=== PATIENT | female | born 1935 | race Caucasian/White ===

== ENCOUNTER 2023-04-04 16:56 | Observation (INO) | payer OTHER, SELFPAY ==
[2023-04-04] VITALS (21 sets, daily range): BP systolic 154–207; BP diastolic 68–86; PULSE 55–86; RESP 13–27; TEMP 37.1; O2SAT 92–97; BMI 25.8
--- NOTE | 2023-04-04 17:22 | DI.CT.S_ITS ---
PROCEDURE: CT HEAD/BRAIN WO CON INDICATIONS: Confusion TECHNIQUE: Noncontrast 4.5 mm thick angled axial sections acquired from the foramen magnum to the vertex, with coronal and sagittal reformats. For radiation dose reduction, the following was used: automated exposure control, adjustment of mA and/or kV according to patient size. COMPARISON: None. FINDINGS: Image quality: Excellent. CSF spaces: Basal cisterns are patent. No extra-axial fluid collections. The ventricles are symmetric in size and shape. Brain: No intracranial bleeds or masses. There is cerebral volume loss for age, with resultant ventricular and sulcal prominence. There are periventricular and deep white matter chronic small vessel ischemic changes. There is intracranial internal carotid artery atherosclerosis. Skull and face: Calvarium and visualized facial bones appear intact, without suspicious lesions. Sinuses: Visualized sinuses and mastoids are clear. IMPRESSION: 1. No acute intracranial abnormalities. 2. Cerebral volume loss and chronic microvascular ischemic changes. Dictated by: Christie Donohue M.D. on 04/04/2023 at 18:49 Approved by: Christie Donohue M.D. on 04/04/2023 at 18:50
--- NOTE | 2023-04-04 17:22 | DI.CT.S_ITS ---
PROCEDURE: CT ANGIO HEAD AND NECK INDICATIONS: Confusion TECHNIQUE: After the administration of intravenous contrast, 1 mm thick sections acquired from the aortic arch through the [place] of [place]. 3-dimensional junqlsa-qxfkbzemq-pccqzwvrcn (MIP) and/or volume rendering reformats were acquired of the central intracranial vasculature and neck separately. For radiation dose reduction, the following was used: automated exposure control, adjustment of mA and/or kV according to patient size. COMPARISON: [facility], CT, CT HEAD/BRAIN WO CON, 04/04/2023, 18:17. FINDINGS: Image quality: Limited by bolus timing, with venous contamination. BRAIN: CSF spaces: Ventricles are normal in size and shape. Basal cisterns are patent. No extra-axial fluid collections. Brain: No significant abnormality of the brain can be seen. Skull and face: Calvarium and facial bones appear intact, without suspicious lesions. Orbits appear normal. Sinuses: Sinuses and mastoids are clear. HEAD CT ANGIOGRAPHY: Anterior circulation: Intracranial internal carotid arteries are normal in size and flow. The flow within the paired anterior cerebral arteries is normal and symmetric. The flow within the middle cerebral arteries is normal and symmetric. The anterior communicating artery is seen. No aneurysms are seen. Posterior circulation: Visualized portions of the vertebral arteries demonstrate normal caliber, and join to form a normal appearing basilar artery. There is a prominent left posterior communicating artery seen, with an accompanying diminutive left P1 segment. This is attributed to a type origin of the right posterior cerebral artery, which is considered to be a normal developmental variant of typically no clinical consequence. The flow within the posterior cerebral arteries is normal and symmetric. No aneurysms are seen. NECK CT ANGIOGRAPHY: Carotid system: The great vessels demonstrate a conventional anatomy as they arise from the aortic arch. The origins of the common carotid arteries appear patent. The common carotid arteries demonstrate normal caliber and courses. The bifurcation regions demonstrate atherosclerotic irregularity and calcification, with approximately 50% narrowing on the left side and approximately 20% narrowing on the right side. The more distal internal carotid arteries demonstrate normal course and caliber. Posterior circulation: The origins of the vertebral arteries both appear widely patent. The more superior extracranial portions of both vertebral arteries also demonstrate normal courses and calibers. The left vertebral artery is dominant to the right. Soft tissues: Visualized neck soft tissues demonstrate no suspicious abnormalities. Bones: No suspicious bony lesions. Visualized cervical spine appears normally aligned. IMPRESSION: No significant intracranial arterial abnormality is seen. Focal atherosclerotic irregularity is seen involving the carotid bifurcation regions, yet without a hemodynamically significant stenosis. No significant vertebral artery abnormality is seen. Any quantitative measurements of stenosis were performed using NASCET criteria. Dictated by: Arian Campoverde M.D. on 04/04/2023 at 18:07 Approved by: Arian Campoverde M.D. on 04/04/2023 at 18:08
[2023-04-04] MEDS: ONDANSETRON 4 MG/2 ML INJ IV (17:43)
[2023-04-04 17:56] LABS: Add Manual Diff / Slide Review NO; Basophils Absolute Auto 100 /uL (0-100); Basophils Percent Auto 0.8 % (0-2); Eosinophils Absolute Auto 100 /uL (0-450); Eosinophils Percent Auto 1.2 % (2-4); Hematocrit 37.1 % (36-46); Hemoglobin 12.6 g/dL (12.0-16.0); Lymphocytes Absolute Auto 2500 /uL (1100-4500); Lymphocytes Percent Auto 27.6 % (25-40); Mean Corpuscular HGB Conc 33.9 % (30-36); Mean Corpuscular Hemoglobin 29.4 PG (26-34); Mean Corpuscular Volume 86.9 fL (80-100); Monocytes Absolute Auto 600 /uL (0-900); Monocytes Percent Auto 6.1 % (3-14); Neutrophils Absolute Auto 5900 /uL (1500-7000); Neutrophils Percent Auto 64.3 % (50-75); Platelet Count 299 X10^3/uL (150-400); Red Blood Cell Count 4.26 X10^6/uL (4.0-5.2); Red Cell Distribution Width 13.8 % (11.6-14.8); White Blood Cell Count 9.1 X10^3/uL (4.5-11.0)
[2023-04-04 17:59] LABS: INR 1.1 (0.9-1.3); Prothrombin Time 12.5 SECONDS (10.1-12.7)
[2023-04-04 18:02] LABS: PTT Partial Thromboplastin Tim 33 SECONDS (26-36)
--- NOTE | 2023-04-04 18:02 | ED_ITS ---
HPI - Neuro Symptoms/Deficit General Chief Complaint: Neuro Symptoms/Deficit Stated Complaint: bp192/108 galileo of stroke since 22 Time Seen by Provider: 04/04/23 17:21 Source: patient, family, RN notes reviewed and old records reviewed Mode of arrival: Wheelchair Limitations: altered mental status History of Present Illness HPI Narrative: 88-year-old female with history of prior TIAs and some short term memory issues on aspirin 81 mg daily, lisinopril and atorvastatin. Patient presents today family states she was last seen normal around noon by her grand daughter in-law. Patient does sometimes have some memory issues or loses her train thought but they state she came to them at about 330 this afternoon telling him that she feels drunk and then had several episodes of emesis. Patient they states seems slow in her speech but no expressive aphasia. They did not appreciate any weakness one-sided. No reported fevers. Patient denies chest pain or shortness of breath, denies headache, denies vision changes. Does state she feels nauseated in his able to tell me she threw up several times. Denies any diarrhea or constipation, denies any urinary symptoms such as dysuria urgency or frequency. No new swelling in her extremities. Patient has not had any ingestions she denies any alcohol. Family states there should be any marijuana or THC or CBD with in the house or other possibilities. She is had prior hip surgery bilaterally, knee surgery. No known drug allergies. No tobacco, alcohol or illicit. She is about to be established with a new primary care doctor [facility]. Patient lives with her son and [id number]-crp. On Anticoagulants: No Related Data Home Medications Medication Instructions Recorded Confirmed Aspir-81 81 mg PO DAILY 04/04/23 04/04/23 Claritin 10 mg PO DAILY seasonal allergies 04/04/23 04/04/23 atorvastatin 40 mg tablet 40 mg PO SUSAN 04/04/23 04/04/23 lisinopril 10 mg tablet 10 mg PO DAILY 04/04/23 04/04/23 Allergies Allergy/AdvReac Type Severity Reaction Status Date / Time No Known Drug Allergies Allergy Verified 04/04/23 17:11 Review of Systems Review of Systems ROS Unobtainable: All systems reviewed & are unremarkable except as noted in HPI and below Hematologic/Lymphatic On Anticoagulants: No Patient History Medical History (Updated 04/05/23 @ 00:56 by Salvador Barr MD) Cognitive deficits TIA (transient ischemic attack) HLD (hyperlipidemia) HTN (hypertension) Social History household members: family Smoking Status: Former smoker alcohol intake: never Smoking Status: Former smoker Substance Use Type: does not use Exam Narrative Exam Narrative: GEN: well nourished, well appearing female, alert and oriented x 1, speech is slow but no obvious expressive aphasia, patient appears to be in mild distress. HEENT: Atraumatic, pupils are equal round reactive to light, extraocular movements are intact, nares are clear, TMs are clear with no fluid, there is no conjunctival pallor. Throat is clear without any exudates, erythema, tonsillar enlargement or uvular deviation, no facial droop. HEART: Regular rate and rhythm without murmur, clicks, rubs. Pulses are equal in upper and lower extremities LUNGS:Lungs clear to auscultation, no wheezes, rales, crackles, chest moves symmetrically ABD:bowel sounds normal, soft, non-tender, no guarding, rebound, rigidity, no masses noted, no hepatosplenomegaly :No CVA tenderness MSCL: Non-tender, no muscle atrophy, muscles strength 5/5 upper and lower extremities, full range of motion NEURO:CN 2-12 intact, sensation normal, finger nose finger test normal, heel smith test normal, no dysarthria. SKIN: No rash, erythema or other skin changes. Initial Vital Signs Initial Vital Signs: Vital Signs Temperature 98.8 F 04/04/23 17:11 Pulse Rate 55 L 04/04/23 17:11 Respiratory Rate 18 04/04/23 17:11 Blood Pressure 154/70 H 04/04/23 17:11 Pulse Oximetry 94 04/04/23 17:11 Oxygen Delivery Method Room Air 04/04/23 17:11 Course Orders Ordered: ED Orders 04/04/23 17:43 Complete Blood Count AUTO DIFF Stat Comprehensive Metabolic Panel Stat Ethanol (ETOH) Stat Lipase Stat PTT Partial Thromboplastin [place] Stat Prothrombin Time INR Stat Troponin & CK Cardiac Panel Stat 04/04/23 19:20 UA Complete [Urinalysis and Microscopic] Stat Urine Drug Screen, Rapid Stat Acetaminophen (Acetaminophen 325 Mg Tablet) 650 mg PO Q6H PRN PRN Reason: Fever/Mild Pain (1-3) Aspirin (Aspirin Ec 81 Mg Tablet) 81 mg PO DAILY [facility] Atorvastatin Calcium (Atorvastatin 20 Mg Tablet) 40 mg PO BEDTIME SHILPA Hydralazine HCl (Hydralazine 20 Mg/Ml Vial) 10 mg IV Q6HR PRN PRN Reason: For SBP>160 Lisinopril (Lisinopril 10 Mg Tablet) 10 mg PO DAILY [facility] Loratadine (Loratadine 10 Mg Tablet) 10 mg PO DAILY [facility] Naloxone HCl (Naloxone 0.4 Mg/Ml Vial) 0.2 mg IV Q2MIN PRN PRN Reason: Opiate Reversal Discontinued Medications Lisinopril (Lisinopril 20 Mg Tablet) 20 mg PO NOW ONE Stop: 04/04/23 22:28 Last Admin: 04/04/23 23:01 Dose: 20 mg Documented By: Ondansetron HCl (Ondansetron 4 Mg/2 Ml Inj) 4 mg IV NOW ONE Stop: 04/04/23 17:40 Last Admin: 04/04/23 17:43 Dose: 4 mg Documented By: DENYS Vital Signs Vital signs: Vital Signs - 8 hr 04/04/23 19:05 04/04/23 19:06 04/04/23 19:06 Pulse Rate 75 79 Respiratory Rate 16 16 Blood Pressure 207/86 H Pulse Oximetry 93 95 04/04/23 19:15 04/04/23 19:15 04/04/23 19:30 Pulse Rate 80 85 Respiratory Rate 15 27 H Blood Pressure 195/84 H Pulse Oximetry 96 96 04/04/23 19:31 04/04/23 19:31 04/04/23 19:45 Pulse Rate 83 77 Respiratory Rate 25 H 18 Blood Pressure 183/80 H Pulse Oximetry 97 97 04/04/23 19:45 04/04/23 20:00 04/04/23 20:01 Pulse Rate 78 Respiratory Rate 17 Blood Pressure 165/74 H 187/84 H Pulse Oximetry 97 04/04/23 20:01 Pulse Rate 78 Respiratory Rate 17 Blood Pressure Pulse Oximetry 97 MDM - Neuro Symptoms/Deficit Lab Data 04/04/23 17:43 04/04/23 17:43 Labs: Lab Results 04/04/23 04/04/23 Range/Units 17:43 19:20 WBC 9.1 (4.5-11.0) X10^3/uL RBC 4.26 (4.0-5.2) X10^6/uL Hgb 12.6 (12.0-16.0) g/dL Hct 37.1 (36-46) % MCV 86.9 (80-100) fL MCH 29.4 (26-34) PG MCHC 33.9 (30-36) % RDW 13.8 (11.6-14.8) % Plt Count 299 (150-400) X10^3/uL Neut % (Auto) 64.3 (50-75) % Lymph % (Auto) 27.6 (25-40) % Woods % (Auto) 6.1 (3-14) % Eos % (Auto) 1.2 L (2-4) % Baso % (Auto) 0.8 (0-2) % Neut # (Auto) 5900 (2456-0341) /uL Lymph # (Auto) 2500 (0389-6630) /uL Woods # (Auto) 600 (0-900) /uL Eos # (Auto) 100 (0-450) /uL Baso # (Auto) 100 (0-100) /uL PT 12.5 (10.1-12.7) SECONDS INR 1.1 (0.9-1.3) APTT 33 (26-36) SECONDS Sodium 134 L (137-145) mmol/L Potassium 4.2 (3.4-5.1) mmol/L Chloride 103 (98-107) mmol/L Carbon Dioxide 24 (22-32) mmol/L BUN 20 H (7-17) mg/dL Creatinine 0.71 (0.52-1.04) mg/dL Estimated GFR > 60 (>60) mL/min BUN/Creatinine Ratio 28.2 H (6-22) Glucose 134 H (80-110) mg/dL Calcium 9.1 (8.4-10.2) mg/dL Total Bilirubin 0.5 (0.2-1.3) mg/dL AST 28 (14-36) IU/L ALT 18 (<35) IU/L Alkaline Phosphatase 99 (38-126) U/L Total Creatine Kinase 57 (30-135) U/L Troponin I < 0.012 (0.01-0.034) ng/mL Total Protein 7.4 (6.3-8.2) g/dL Albumin 4.1 (3.5-5.0) g/dL Globulin 3.3 (1.7-4.1) g/dL Albumin/Globulin Ratio 1.2 (1.0-2.8) Lipase 74 (23-300) U/L Urine Color Yellow Urine Appearance Clear Urine pH 5.5 (4.5-8.0) Ur Specific [place] 1.015 (1.000-1.035) Urine Protein Negative (Negative) Urine Glucose (UA) Negative (Negative) g/dL Urine Ketones Negative (NEGATIVE) Urine Occult Blood 1+ H (Negative) Urine Nitrate Negative (Negative) Urine Bilirubin Negative (NEGATIVE) Urine Urobilinogen 0.2 (0.2) E.U./dL Ur Leukocyte Esterase Negative (NEGATIVE) Urine RBC 1-5/hpf (0-5/HPF) Urine WBC 0-1/hpf (0-5/HPF) Ur Squamous Epith Cells 0-1 /hpf (0-5/HPF) Urine Bacteria None seen (None) Ur Culture Indicated? Cult not indicated U Opiates 300ng/mL cut Negative (Negative) Ur Oxycodone Screen Negative (Negative) Urine Methadone Screen Negative (Negative) Ur Barbiturates Screen Negative (Negative) U Tricyclic Antidepress Negative (Negative) Ur Phencyclidine Scrn Negative (Negative) Ur Amphetamines Screen Negative (Negative) U Methamphetamines Scrn Negative (Negative) Ur MDMA Scrn (Ecstasy) Negative (Negative) U Benzodiazepines Scrn Negative (Negative) Urine Cocaine Screen Negative (Negative) U Marijuana (THC) Screen Positive H (Negative) Ethyl Alcohol < 10 ( - 10) mg/dL Imaging Data CT scan - head: Radiologist's Impression: Close Head/Neck CTA (Signed) Arian Campoverde - 04/04/[address] (Signed) Christie Donohue - 04/04/23 Launch?[address] [address] [address] Scan Report Signed Patient: Amy Patel MR#: [id number] : 1935 Acct:[id number] Age/Sex: 88 / F Date of Service: 04/04/23 Loc: ED Accession Number: [id number] Procedure: CT head/brain wo con Ordering Provider: Heath Garcia D.O. PROCEDURE: CT HEAD/BRAIN WO CON INDICATIONS: Confusion TECHNIQUE: Noncontrast 4.5 mm thick angled axial sections acquired from the foramen magnum to the vertex, with coronal and sagittal reformats. For radiation dose reduction, the following was used: automated exposure control, adjustment of mA and/or kV according to patient size. COMPARISON: None. FINDINGS: Image quality: Excellent. CSF spaces: Basal cisterns are patent. No extra-axial fluid collections. The ventricles are symmetric in size and shape. Brain: No intracranial bleeds or masses. There is cerebral volume loss for age, with resultant ventricular and sulcal prominence. There are periventricular and deep white matter chronic small vessel ischemic changes. There is intracranial internal carotid artery atherosclerosis. Skull and face: Calvarium and visualized facial bones appear intact, without suspicious lesions. Sinuses: Visualized sinuses and mastoids are clear. IMPRESSION: 1. No acute intracranial abnormalities. 2. Cerebral volume loss and chronic microvascular ischemic changes. Dictated by: Christie Donohue M.D. on 04/04/2023 at 18:49 Approved by: Christie Donohue M.D. on 04/04/2023 at 18:50 CTA - brain/neck: Radiologist's Impression: Amy Patel??88??F??1935 ? Allergy/Adv: No Known Drug Allergies (More??) Close Head/Neck CTA (Signed) NiraliArian - 04/04/[address] (Signed) Christie Donohue - 04/04/23 Launch?[place] [address] CT Scan Report Signed Patient: Amy Patel MR#: [id number] : 1935 Acct:[id number] Age/Sex: 88 / F Date of Service: 04/04/23 Loc: ED Accession Number: [id number] Procedure: CT angio head and neck Ordering Provider: Heath Garcia D.O. PROCEDURE: CT ANGIO HEAD AND NECK INDICATIONS: Confusion TECHNIQUE: After the administration of intravenous contrast, 1 mm thick sections acquired from the aortic arch through the [place] of [place]. 3-dimensional xdkkcyy-xjusyunvj-quokfxggnr (MIP) and/or volume rendering reformats were acquired of the central intracranial vasculature and neck separately. For radiation dose reduction, the following was used: automated exposure control, adjustment of mA and/or kV according to patient size. COMPARISON: [facility], CT, CT HEAD/BRAIN WO CON, 04/04/2023, 18:17. FINDINGS: Image quality: Limited by bolus timing, with venous contamination. BRAIN: CSF spaces: Ventricles are normal in size and shape. Basal cisterns are patent. No extra-axial fluid collections. Brain: No significant abnormality of the brain can be seen. Skull and face: Calvarium and facial bones appear intact, without suspicious lesions. Orbits appear normal. Sinuses: Sinuses and mastoids are clear. HEAD CT ANGIOGRAPHY: Anterior circulation: Intracranial internal carotid arteries are normal in size and flow. The flow within the paired anterior cerebral arteries is normal and symmetric. The flow within the middle cerebral arteries is normal and symmetric. The anterior communicating artery is seen. No aneurysms are seen. Posterior circulation: Visualized portions of the vertebral arteries demonstrate normal caliber, and join to form a normal appearing basilar artery. There is a prominent left posterior communicating artery seen, with an accompanying diminutive left P1 segment. This is attributed to a type origin of the right posterior cerebral artery, which is considered to be a normal developmental variant of typically no clinical consequence. The flow within the posterior cerebral arteries is normal and symmetric. No aneurysms are seen. NECK CT ANGIOGRAPHY: Carotid system: The great vessels demonstrate a conventional anatomy as they arise from the aortic arch. The origins of the common carotid arteries appear patent. The common carotid arteries demonstrate normal caliber and courses. The bifurcation regions demonstrate atherosclerotic irregularity and calcification, with approximately 50% narrowing on the left side and approximately 20% narrowing on the right side. The more distal internal carotid arteries demonstrate normal course and caliber. Posterior circulation: The origins of the vertebral arteries both appear widely patent. The more superior extracranial portions of both vertebral arteries also demonstrate normal courses and calibers. The left vertebral artery is dominant to the right. Soft tissues: Visualized neck soft tissues demonstrate no suspicious abnormalities. Bones: No suspicious bony lesions. Visualized cervical spine appears normally aligned. IMPRESSION: No significant intracranial arterial abnormality is seen. Focal atherosclerotic irregularity is seen involving the carotid bifurcation regions, yet without a hemodynamically significant stenosis. No significant vertebral artery abnormality is seen. Any quantitative measurements of stenosis were performed using NASCET criteria. Dictated by: Arian Campoverde M.D. on 04/04/2023 at 18:07 Approved by: Arian Campoverde M.D. on 04/04/2023 at 18:08 ECG Data Attestation: I personally reviewed and interpreted this ECG as follows: Prior ECG tracings: not available for review Interpretation: Sinus bradycardia rate of 57 WI 190 QRS of 84 QTC of 432. No acute ST elevation or depression noted. MDM Narrative Medical decision making narrative: 88-year-old female described as being altered patient describes herself as feeling drunk had several episodes of emesis. Denies any ingestions. Patient does seem slow but otherwise has a normal neurologic exam. She is noted have some short term memory issues in general has had prior TIAs. Family states that prior strokes/TIAs were more stuttering and expressive aphasia type symptoms. Patient's head CT CT angio did not show any acute occlusive changes, labs do not show any significant electrolyte abnormalities, signs of infection, urine is negative for infection. UDS is positive for THC family notes she would a CBD 3 nights ago but did not seem to make any difference. She has not had any since then. They state they should not have anything in the house that she could have had such an edible. I would not expect CBD to cause symptoms 3 days later. Discussed with family she still alert but altered. Discussed with tele hospitalist about observation and possible MR in the morning. Did review all patient's labs including tox screen and reported had CBD several days ago but not since. Did note patient has been hypertensive during her stay. Dr. Barr accepts for observation. Will address blood pressure, agrees with plan for observation likely MR in the morning to make sure not a neurologic source of her altered mental status. Stroke Core Measures Exclusion Criteria TPA in CVA: Symptom Onset >3 or 4.5 Hours Discharge Plan Departure Patient Disposition: Admitted as Observation Clinical Impression: Altered mental status Admit Date/Time: 04/04/23 20:04 Admit Provider: Salvador Valladares
[2023-04-04 18:04] LABS: Alanine Aminotransferase 18 IU/L (<35); Albumin 4.1 g/dL (3.5-5.0); Albumin Globulin Ratio 1.2 (1.0-2.8); Alkaline Phosphatase 99 U/L (38-126); Aspartate Aminotransferase 28 IU/L (14-36); BUN Creatinine Ratio 28.2 (6-22); Bilirubin Total 0.5 mg/dL (0.2-1.3); Blood Urea Nitrogen 20 mg/dL (7-17); Calcium 9.1 mg/dL (8.4-10.2); Carbon Dioxide 24 mmol/L (22-32); Chloride 103 mmol/L (98-107); Creatine Kinase 57 U/L (30-135); Estimated Glomerular Filt Rate > 60 mL/min (>60); Ethanol (ETOH) < 10 mg/dL; Globulin 3.3 g/dL (1.7-4.1); Glucose 134 mg/dL (80-110); HEMOLYSIS < 15 (0-50); Lipase 74 U/L (23-300); Potassium 4.2 mmol/L (3.4-5.1); Sodium 134 mmol/L (137-145); Total Protein 7.4 g/dL (6.3-8.2)
[2023-04-04 18:15] LABS: Troponin I < 0.012 ng/mL (0.01-0.034)
[2023-04-04 19:32] LABS: Appearance Urine UA CLEAR; Bilirubin Urine UA NEGATIVE (NEGATIVE); Color Urine UA YELLOW; Glucose Urine UA NEGATIVE (Negative); Ketones Urine UA NEGATIVE (NEGATIVE); Leukocyte Esterase Urine UA NEGATIVE (NEGATIVE); Nitrite Urine UA NEGATIVE (Negative); Occult Blood Urine UA 1+ (Negative); Protein Urine UA NEGATIVE (Negative); Specific Gravity Urine UA 1.015 (1.000-1.035); Urobilinogen Urine UA 0.2 E.U./dL (0.2)
[2023-04-04 19:38] LABS: UR Morphine/Opiate cutoff 300 Negative (Negative); Ur Creatinine Normal (Normal); Ur Specific Gravity Normal (Normal); Urine Amphetamines Negative (Negative); Urine Barbiturates Negative (Negative); Urine Benzodiazepines Negative (Negative); Urine Cocaine Negative (Negative); Urine MDMA Negative (Negative); Urine Methadone Negative (Negative); Urine Methamphetamines Negative (Negative); Urine Oxycodone Negative (Negative); Urine Phencyclidine Negative (Negative); Urine Tetrahydrocannabinol Positive (Negative); Urine Tricyclic Antidepressant Negative (Negative); Urine pH Normal (Normal)
[2023-04-04 19:43] LABS: pH Urine UA 5.5 (4.5-8.0)
[2023-04-04 19:44] LABS: Bacteria Urine None Seen; Culture Indicated Urine Cult Not Indicated; RBC Urine 1-5/HPF (0-5/HPF); Squamous Epithelial Cell Urine 0-1 /HPF (0-5/HPF); WBC Urine 0-1/HPF (0-5/HPF)
--- NOTE | 2023-04-04 20:19 | PM.HP.1 ---
History of Present Illness History of Present Illness Date Patient Seen: 04/04/23 Chief complaint: bp192/108 galileo of stroke since 22 Narrative: Family reports on confusion, slower speech. Hx of TIAs, baseline cognitive deficits, HTN, HLD, on ASA, Lipitor and Lisinopril. Grossly hypertensive on arrival to ED, remains to be hypertensive on admission. CTH and CTA unrevealing. [facility] Medical History (Updated 04/05/23 @ 00:56 by Salvador Barr MD) Cognitive deficits TIA (transient ischemic attack) HLD (hyperlipidemia) HTN (hypertension) Social History household members: family Smoking Status: Former smoker alcohol intake: never Meds Home Medications and Allergies Home Medications Medication Instructions Recorded Confirmed Type Aspir-81 81 mg PO DAILY 04/04/23 04/04/23 History Claritin 10 mg PO DAILY seasonal allergies 04/04/23 04/04/23 History atorvastatin 40 mg tablet 40 mg PO SUSAN 04/04/23 04/04/23 History lisinopril 10 mg tablet 10 mg PO DAILY 04/04/23 04/04/23 History Allergies Allergy/AdvReac Type Severity Reaction Status Date / Time No Known Drug Allergies Allergy Verified 04/04/23 17:11 Review of Systems Review of Systems Narrative: Poor historian Constitutional Comments: Generalized weakness Cardiovascular Comments: w/o chest pain Respiratory Comments: w/o shortness of breath Gastrointestinal Comments: w/o abdominal pain Neurologic Comments: w/o headache Exam Vital Signs (past 8 hours): - 04/04/23 17:11 04/04/23 17:40 04/04/23 17:41 Temperature 98.8 F Pulse Rate 55 L 73 68 Respiratory Rate 18 Blood Pressure 154/70 H Pulse Oximetry 94 94 95 Oxygen Delivery Method Room Air 04/04/23 17:41 04/04/23 17:43 04/04/23 17:43 Temperature Pulse Rate 64 Respiratory Rate 17 Blood Pressure 191/81 H 176/77 H Pulse Oximetry 95 Oxygen Delivery Method 04/04/23 18:11 04/04/23 18:12 04/04/23 18:12 Temperature Pulse Rate 86 64 Respiratory Rate 17 17 Blood Pressure 198/78 H Pulse Oximetry 93 92 Oxygen Delivery Method 04/04/23 18:16 04/04/23 18:16 04/04/23 18:30 Temperature Pulse Rate 65 79 Respiratory Rate 16 Blood Pressure 188/85 H Pulse Oximetry 95 93 Oxygen Delivery Method 04/04/23 19:05 04/04/23 19:06 04/04/23 19:06 Temperature Pulse Rate 75 79 Respiratory Rate 16 16 Blood Pressure 207/86 H Pulse Oximetry 93 95 Oxygen Delivery Method 04/04/23 19:15 04/04/23 19:15 04/04/23 19:30 Temperature Pulse Rate 80 85 Respiratory Rate 15 27 H Blood Pressure 195/84 H Pulse Oximetry 96 96 Oxygen Delivery Method 04/04/23 19:31 04/04/23 19:31 04/04/23 19:45 Temperature Pulse Rate 83 77 Respiratory Rate 25 H 18 Blood Pressure 183/80 H Pulse Oximetry 97 97 Oxygen Delivery Method 04/04/23 19:45 04/04/23 20:00 04/04/23 20:01 Temperature Pulse Rate 78 Respiratory Rate 17 Blood Pressure 165/74 H 187/84 H Pulse Oximetry 97 Oxygen Delivery Method 04/04/23 20:01 04/04/23 20:15 04/04/23 20:15 Temperature Pulse Rate 78 83 Respiratory Rate 17 13 Blood Pressure 185/68 H Pulse Oximetry 97 95 Oxygen Delivery Method Oxygen Delivery Method Room Air Const Other: Sitting in bed in no distress Eyes Other: reactive pupils, eomi Objective Labs 04/04/23 17:43 04/04/23 17:43 Labs: Laboratory Results - last 24 hr 04/04/23 04/04/23 17:43 19:20 WBC 9.1 RBC 4.26 Hgb 12.6 Hct 37.1 MCV 86.9 MCH 29.4 MCHC 33.9 RDW 13.8 Plt Count 299 Neut % (Auto) 64.3 Lymph % (Auto) 27.6 [place] % (Auto) 6.1 Eos % (Auto) 1.2 L Baso % (Auto) 0.8 Neut # (Auto) 5900 Lymph # (Auto) 2500 [place] # (Auto) 600 Eos # (Auto) 100 Baso # (Auto) 100 PT 12.5 INR 1.1 APTT 33 Sodium 134 L Potassium 4.2 Chloride 103 Carbon Dioxide 24 BUN 20 H Creatinine 0.71 Estimated GFR > 60 BUN/Creatinine Ratio 28.2 H Glucose 134 H Calcium 9.1 Total Bilirubin 0.5 AST 28 ALT 18 Alkaline Phosphatase 99 Total Creatine Kinase 57 Troponin I < 0.012 Total Protein 7.4 Albumin 4.1 Globulin 3.3 Albumin/Globulin Ratio 1.2 Lipase 74 Urine Color Yellow Urine Appearance Clear Urine pH 5.5 Ur Specific [place] 1.015 Urine Protein Negative Urine Glucose (UA) Negative Urine Ketones Negative Urine Occult Blood 1+ H Urine Nitrate Negative Urine Bilirubin Negative Urine Urobilinogen 0.2 Ur Leukocyte Esterase Negative Urine RBC 1-5/hpf Urine WBC 0-1/hpf Ur Squamous Epith Cells 0-1 /hpf Urine Bacteria None seen Ur Culture Indicated? Cult not indicated U Opiates 300ng/mL cut Negative Ur Oxycodone Screen Negative Urine Methadone Screen Negative Ur Barbiturates Screen Negative U Tricyclic Antidepress Negative Ur Phencyclidine Scrn Negative Ur Amphetamines Screen Negative U Methamphetamines Scrn Negative Ur MDMA Scrn (Ecstasy) Negative U Benzodiazepines Scrn Negative Urine Cocaine Screen Negative U Marijuana (THC) Screen Positive H Ethyl Alcohol < 10 Assessment & Plan Assessment and plan (1) TIA (transient ischemic attack): Status: Acute Plan: Fluctuating symptoms, could be related with severe HTN CTH and CTA non-revealing. MRI pending - r/o CVA (2) HTN (hypertension): Status: Acute Plan: Takes Lisinopril 10 mg hs SBP in ED ~ 200 - Given 20 mg of Lisinopril on admission, to continue with 10 mg hs - prn hydralazine (3) Altered mental status: Status: Acute Plan: Hypertensive encephalopathy? CVA? 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
[2023-04-04] MEDS: lisinopriL 20 MG TABLET PO (23:01)
[2023-04-05 03:00] VITALS: BP 163/66; PULSE 66; RESP 17; TEMP 36.4; O2SAT 96
[2023-04-05] MEDS: LORATADINE 10 MG TABLET PO (08:06)
[2023-04-05] MEDS: LORazepam 0.5 MG TABLET PO (08:06)
[2023-04-05] MEDS: ASPIRIN EC 81 MG TABLET PO (08:06)
--- NOTE | 2023-04-05 08:17 | DI.MRI.S_ITS ---
PROCEDURE: MR HEAD/BRAIN WO CON INDICATIONS: suspected stroke TECHNIQUE: Non-contrast axial T1 spin echo, axial T2 fast spin echo, sagittal and axial FLAIR, coronal T2 fast spin echo, axial gradient echo, axial diffusion and ADC through the brain. COMPARISON: [facility], CT, CT ANGIO HEAD AND NECK, 04/04/2023, 18:17. [facility], CT, CT HEAD/BRAIN WO CON, 04/04/2023, 18:17. FINDINGS: Image quality: Excellent. CSF spaces: Ventricles appear symmetric in size and shape. Basal cisterns are patent. No extra-axial fluid collections. Brain: No intracranial bleeds or mass effects. There is cerebral volume loss for age. There are moderate periventricular and deep white matter chronic small vessel ischemic changes. Brainstem appears normal. Diffusion-weighted images show no acute ischemic insults. No chronic ischemic insults. Normal intravascular flow voids are present. Skull and face: Calvarial bone marrow is normal in signal. Orbits are normal. Sinuses: Sinuses and mastoids are clear. IMPRESSION: 1. Age-related volume loss and moderate small vessel ischemic change. 2. No acute intracranial process. Dictated by: Mode De La Rosa M.D. on 04/05/2023 at 11:31 Approved by: Mode De La Rosa M.D. on 04/05/2023 at 11:33
[2023-04-05 08:20] VITALS: BP 158/64; PULSE 64; RESP 14; TEMP 36.2; O2SAT 100
--- NOTE | 2023-04-05 10:53 | CM.DANOTE ---
Reviewed EMR and team rounds for pt's medical status and anticipated d/c needs. Met with pt to introduce self and role. She was found to be alert, still experiencing delays in speech and cognitive processing, however she was able to answer questions congruently. She expressed feeling much better today than when she was admitted yesterday. Payor: [employer] Medicare Adv. PCP: U/Indy Pt is a 88 year-old F who presented to the ED on 04/04/23 with new onset confusion, slower speech, altered mental status with a hx of TIA's. She was placed in OBS for further assessment, MRI/Brain results are currently pending. CT imanaging done in the ED were negative for intracranial arterial abnormalities, and no occlusive changes were identified. Once medically cleared, her son or dtr-in-law will transport her back home. DCP will continue to follow and assist with any d/c needs/resources prior to her leaving. Discharge Planning/Care Management Advanced directive, confirm from FAMILY Start: 04/04/23 22:30 Freq: Q24H Status: Active Protocol: Document 04/05/23 10:00 BT (Rec: 04/05/23 10:05 BT [id number]) Advance Directive, confirm on record Time 10:05 Person contacted Pt Copy received No CM Discharge Assessment Start: 04/05/23 10:49 Freq: Status: Active Protocol: Document 04/05/23 10:50 DPL (Rec: 04/05/23 10:53 DPL [id number]) Discharge Planning Assessment Assigned Strategic Marketing Specialist DEVON Florez Advance Directives? Yes Advance Directives on File No History Provided By Patient,Medical Record Has Patient been admitted in last 30 No days? Prior Living Arrangements House Household Members family Type of transporation used prior to Relies on Others admit Independent with ADL's No: Pt relies on family to assist with some ADL's and all IADL's. Needs Assistance With Meal Prep,Managing Medications ,Home Chores / Shopping Caregiver for Another No DME Already Rented / Owned Cane Comment No anticipated d/c needs identified at this time. Barriers to Discharge No Referrals Initiated None needed Whiteboard Updated in Patient Room with Yes name and ext. # of Strategic Marketing Specialist Review Status In Process Please Provide Date Initial DC 04/05/23 Assessment Was Performed
--- NOTE | 2023-04-05 12:20 | P.DS_ITS ---
History of Present Illness History of Present Illness Date Patient Seen: 04/04/23 Chief complaint: bp192/108 galileo of stroke since 22 Narrative: Family reports on confusion, slower speech. Hx of TIAs, baseline cognitive deficits, HTN, HLD, on ASA, Lipitor and Lisinopril. Grossly hypertensive on arrival to ED, remains to be hypertensive on admission. CTH and CTA unrevealing. Discharge Providers Provider Date of admission: 04/04/23 20:04 Discharge Date: 04/05/23 Discharge provider: Jimmie Bliss DO Summary Hospital Course Discharge Diagnosis: (1) TIA (transient ischemic attack) concern: Status: Acute Plan: Fluctuating symptoms, could be related with severe HTN CTH and CTA non-revealing. MRI negative continue ASA and statin (2) HTN (hypertension): Status: Acute Plan: Takes Lisinopril 10 mg hs SBP in ED ~ 200 -discharged on lisinopril 20mg daily and added amlodipine 5mg daily (3) Altered mental status: Status: Resolved Plan: Hypertensive encephalopathy? CVA? 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 Was THC positive due to an edible she had taken a few days before. BP very high and this improved with higher dose BP meds. MRI brain negative for stroke. Already on ASA/statin so this was continued. Mentation resolved. Discharged home with increased home lisinopril for 20mg and added amlodipine 5mg daily. Has f/up with new PCP the day after discharge. Exam Vital Signs (past 8 hours): - 04/05/23 08:20 Temperature 97.2 F L Pulse Rate 64 Respiratory Rate 14 Blood Pressure 158/64 H Pulse Oximetry 100 Oxygen Flow Rate 0 Oxygen Delivery Method Room Air Oxygen Flow Rate 0 Const Other: Sitting in bed in no distress Eyes Other: reactive pupils, eomi Objective Labs 04/04/23 17:43 04/04/23 17:43 Labs: Laboratory Results - last 24 hr 04/04/23 04/04/23 17:43 19:20 WBC 9.1 RBC 4.26 Hgb 12.6 Hct 37.1 MCV 86.9 MCH 29.4 MCHC 33.9 RDW 13.8 Plt Count 299 Neut % (Auto) 64.3 Lymph % (Auto) 27.6 [place] % (Auto) 6.1 Eos % (Auto) 1.2 L Baso % (Auto) 0.8 Neut # (Auto) 5900 Lymph # (Auto) 2500 [place] # (Auto) 600 Eos # (Auto) 100 Baso # (Auto) 100 PT 12.5 INR 1.1 APTT 33 Sodium 134 L Potassium 4.2 Chloride 103 Carbon Dioxide 24 BUN 20 H Creatinine 0.71 Estimated GFR > 60 BUN/Creatinine Ratio 28.2 H Glucose 134 H Calcium 9.1 Total Bilirubin 0.5 AST 28 ALT 18 Alkaline Phosphatase 99 Total Creatine Kinase 57 Troponin I < 0.012 Total Protein 7.4 Albumin 4.1 Globulin 3.3 Albumin/Globulin Ratio 1.2 Lipase 74 Urine Color Yellow Urine Appearance Clear Urine pH 5.5 Ur Specific [place] 1.015 Urine Protein Negative Urine Glucose (UA) Negative Urine Ketones Negative Urine Occult Blood 1+ H Urine Nitrate Negative Urine Bilirubin Negative Urine Urobilinogen 0.2 Ur Leukocyte Esterase Negative Urine RBC 1-5/hpf Urine WBC 0-1/hpf Ur Squamous Epith Cells 0-1 /hpf Urine Bacteria None seen Ur Culture Indicated? Cult not indicated U Opiates 300ng/mL cut Negative Ur Oxycodone Screen Negative Urine Methadone Screen Negative Ur Barbiturates Screen Negative U Tricyclic Antidepress Negative Ur Phencyclidine Scrn Negative Ur Amphetamines Screen Negative U Methamphetamines Scrn Negative Ur MDMA Scrn (Ecstasy) Negative U Benzodiazepines Scrn Negative Urine Cocaine Screen Negative U Marijuana (THC) Screen Positive H Ethyl Alcohol < 10 [facility] Medical History (Updated 04/05/23 @ 00:56 by Salvador Barr MD) Cognitive deficits TIA (transient ischemic attack) HLD (hyperlipidemia) HTN (hypertension) Social History household members: family Smoking Status: Former smoker alcohol intake: never Discharge Plan Discharge Plan Patient Disposition: Home Provider Discharge Comment: You were admitted for very high blood pressure and some confusion. Your brain MRI was negative for a stroke. I've raised your blood pressure meds and added another one for better BP control, as your confusion may have been because your BP was so high. Discharge orders & Medications Prescriptions: New lisinopril 20 mg tablet 20 mg PO DAILY Qty: 30 0RF amlodipine 5 mg tablet 5 mg PO DAILY Qty: 30 0RF Continued atorvastatin 40 mg Tablet 40 mg PO SUSAN Claritin 10 mg tablet 10 mg PO DAILY Aspir-81 81 mg 81 mg PO DAILY Discontinued lisinopril 10 mg Tablet 10 mg PO DAILY Visit Report/Discharge Packet Instructions: Transient Ischemic Attack Stand Alone Forms: Patient Portal/API, Stroke Signs & Symptoms Discharge Data Attending Provider: Salvador Valladares Admit Date/Time: 04/04/23 20:04 Quality VTE Deep Vein Thrombosis/Pulmonary Embolism Present on Admission: No
== END 2023-04-05 14:55 | disposition home or self-care (01) ==
LOC: ED 20:05 → AC 20:05
PROVIDERS: Emergency Medicine; Admitting Provider Internal Medicine; Emergency Provider Emergency Medicine; Referring Provider Emergency Medicine; Visit Provider Internal Medicine
DX: G45.9 Transient cerebral ischemic attack, unspecified (principal); I10 Essential (primary) hypertension; E78.5 Hyperlipidemia, unspecified; R29.818 Other symptoms and signs involving the nervous system; Z86.73 Personal history of transient ischemic attack (TIA), and cerebral infarction without residual deficits; R41.89 Other symptoms and signs involving cognitive functions and awareness
CPT/HCPCS: 36415; 51798; 70450; 70496; 70498; 70551; 80053; 80305; 80320; 81001; 82550; 83690; 84484; 85025; 85610; 85730; 93005; 93010; 96374; 99285; G0378; J2405; Q9967

== ENCOUNTER 2024-01-18 16:00 | Outpatient (RCR) | payer OTHER, SELFPAY ==
[2023-04-04 20:43] VITALS: BMI 25.8
--- NOTE | 2023-11-30 16:45 | PT.OIE ---
Current Diagnoses Unsteadiness on feet (11/30/23) Repeated falls (11/30/23) Other malaise (11/30/23) Activity, other involving muscle strengthening exercises (11/30/23) Problem related to care provider dependency, unspecified (11/30/23) Past Medical History (Last Updated 10/22/23 @ 08:22 by Edyta Pérez MD) Anxiety Cataracts, bilateral (~1999) Chicken pox (~1939) Cognitive deficits Declining functional status Depressed mood Headache Hearing loss (~1999) HLD (hyperlipidemia) HTN (hypertension) (~2021) Insomnia Measles (~1941) Migraines Osteoarthritis Osteoporosis (~1999) Pain of paraspinal muscle Stroke (~2021) TIA (transient ischemic attack) (~2021) Past Surgical History (Last Reviewed 10/17/23 @ 04:03 by Risa Saucedo MD) Anesthesia History of cataract removal with insertion of prosthetic lens (~1989) History of cholecystectomy History of hip replacement History of hysterectomy History of knee joint replacement (~2015) Visit Care Team Role Provider Type Edyta Pérez MD Primary Care Provider Physician Specialty: Family Practice FLOOR STEWARD/STEWARDESS Address: [address] [place] [address] Fax: Email: [email or web address] Anastasiya Gonzalez MD Attending Provider Physician Referring Provider Specialty: [facility] Address: [address] [place] [address], [id number] Email: [email or web address] Physical Therapy Initial Evaluation PT-OP-A Visit Information Start: 11/30/23 16:45 Freq: Status: Active Protocol: Document 11/30/23 16:10 DCW (Rec: 11/30/23 16:50 DCW [id number]) Out-Patient Physical Therapy Visit Information Visit Information Visit Type Initial Evaluation Visit Note Later arrival Visit Start Time 16:10 Visit Stop Time 16:45 Visit Number 1 Number of REGIONAL SALES COORDINATOR Visits 0 Evaluation Information Evaluation Date 11/30/23 PT-OP-B Current Condition Start: 11/30/23 16:45 Freq: Status: Active Protocol: Document 11/30/23 16:10 DCW (Rec: 12/03/23 09:43 [facility] [id number]) Current Condition History of Current Condition Onset Date Multi-year history Current Complaints Weakness, deconditioning, imbalance History of Current Condition Pt is an 88 year old female presenting with a multi-year history of worsening balance, weakness, and instability, which has resulted in a few falls. Pt reports she suffered a TIA a few years ago, minimal lingering physical effects, other than just deconditioning, as she has decreased her activity level, but admits that it has greatly increased her emotional liability, pt even began crying walking back from the waiting room, noted she didn't know why and wasn't feeling upset. Admits she doesn't exercise enough. Comes in to her initial evaluation with a SPC, but admits she uses it infrequently. Pt's son attends eval with her, pt moved in with him ~8 months ago after moving from the [email or web address] Treatment Goals Patient/Caregiver Goals Increase strength and activity [place], decrease falls risk Personal Factors Other Personal Factors That May Effect Hz of TIA, Hx of R TKA, R JAMAR, Therapy/Recovery memory loss, [place], multiple falls PT-OP-C Subjective Start: 11/30/23 16:45 Freq: Status: Active Protocol: Document 11/30/23 16:10 DCW (Rec: 12/03/23 09:43 [facility] [id number]) OP-PT Subjective Patient Comments Patient Comments It doesn't seem to matter what I do, I can't seem to gain strength. PT-OP-D Balance Start: 11/30/23 16:45 Freq: Status: Active Protocol: Document 11/30/23 16:10 DCW (Rec: 11/30/23 16:50 [facility] [id number]) Balance Tests Hicks Balance Test Hicks Balance Test Score 42/56 Hicks Balance Assessment Evaluation Sitting to Standing Ability Independent w/out Hands Unsupported Stance Safely- 2 minutes Sitting Unsupported, Feet on Floor Safely- 2 minutes Standing to Sitting Ability Assist, Use Legs on Chair Transfer Ability Safely, Hand Use Unsupported Stance- Eyes Closed Safely, 10 seconds Unsupported Stance- Eyes Open Supervision to maintain Reaching Forward Standing Safely, 5 inches Pick- Up Object From Floor Supervision Look Behind Shoulder - Standing Shifts Weight Unilateral Turning 360 Degrees Turns Bilateral, < 4 secs Unsupported Stance, Alternating Feet on 4 Steps w/Supervision Stair Unsupported Tandem Stance Small Step- 30 seconds Unilateral Leg Stance Lifts Leg/Unable to Hold Total Score Hicks Total Score (out of 56 points) 42 Hicks Impairment Rating 20 to 39% Impaired (Score 34- 44) PT-OP-E Functional Tests Start: 11/30/23 16:45 Freq: Status: Active Protocol: Document 11/30/23 16:10 DCW (Rec: 11/30/23 16:50 DCW [id number]) Functional Tests Dynamic Gait Index (DGI) Score DGI Impairment Rating 20 to <40% Impaired (Score 15- 19) PT-OP-M Strength Start: 11/30/23 16:45 Freq: Status: Active Protocol: Document 11/30/23 16:10 DCW (Rec: 11/30/23 16:50 DCW [id number]) Hip Strength Hip Manual Muscle Testing Right Flexion (L2) 4- Good- Abduction 4- Good- Adduction 4 Good External Rotation 4 Good Internal Rotation 4 Good Left Flexion (L2) 3+ Fair+ Abduction 4- Good- Adduction 4 Good External Rotation 4 Good Internal Rotation 4 Good Knee Strength Knee Manual Muscle Testing Right Flexion (S2) 3+ Fair+ Extension (L3) 4- Good- Left Flexion (S2) 4- Good- Extension (L3) 4- Good- PT-OP-T Assessment and Plan Start: 11/30/23 16:45 Freq: Status: Active Protocol: Document 11/30/23 16:10 DCW (Rec: 12/03/23 10:55 DCW [id number]) Physical Therapy Assessment Rehab Potential Rehabilitation Potential Good Evaluation Complexity Number of Personal Factors/Comorbidities 3 or More Number of Body Systems Impaired 4 or More Clinical Presentation at Evaluation Evolving Impairments Impairments Activity Tolerance,Balance, Functional Activities, Functional Mobility,Soft Tissue Mobility,Strength Other Concerns Fall Risk Yes, per scores on Hicks (42/56 ) and DGI () Goals Three Impairment MMT of B hip flex/abd, and B knee flex/ext tested at 4-/5 or weaker [employer] Driver Goal (LTG) Pt to demonstrate MMT of 4/5 or greater in all tested planes of bilateral hips and knees in order to improve dynamic stability. LTG Duration 02/28/24 Two Impairment Pt scores as in increased falls risk on Hicks Balance scale (42/56) Correction Goal (LTG) Pt to increase score on Hicks Balance scale by at least 4 points to 46/56 in order to demonstrate decrease in falls risk LTG Duration 02/28/24 One Impairment Pt does not have an appropriate home exercise program Short Term Goal (STG) Pt to be independent and compliant with an appropriate HEP STG Duration 12/31/23 Assessment Summary Assessment Pt presents with signs and symptoms consistent with referring diagnosis. Pt has experienced a decline in functional mobility, activity tolerance, strength, and stability for the past few years following a TIA. Pt testing shows in increased risk of falls, per scores on Hicks (42/56) and DGI (). Additionally, pt MMT of B hip flex/abd, and B knee flex/ext tested at 4-/5 or weaker. Negative effects on functional mobility and stability during gait. Pt should benefit from skilled therapeutic intervention focusing on LE strength, balance training, increased activity tolerance, and gait training. Physical Therapy Plan Frequency and Duration Frequency of Treatment 2x/Week Plan of Care Start Date 11/30/23 Plan of Care End Date 02/28/24 Therapeutic Interventions Therapeutic Interventions Balance Training,Gait Training ,Home Exercise Program,Joint Mobilizations,Manual Therapy, Neuromuscular Re-education, Patient/Caregiver Education, Self-Care/Home Management,Soft Tissue Mobilization, Therapeutic Activities, Therapeutic Exercises Next Visit Focus/Plan Next Note Type Treatment Note Next Visit Plan Hip/knee strengthening, Static /dynamic balance challenges, ambulation on uneven surfaces, increased activity tolerance.
--- NOTE | 2023-11-30 16:45 | PT.OPPOC ---
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, unspecified (11/30/23) Visit Care Team Role Provider Type Edyta Pérez MD Primary Care Provider Physician Specialty: Family Practice POST FORM REMOVER Address: [address] [place] [address], [facility] Fax: Email: [email or web address] Anastasiya Gonzalez MD Attending Provider Physician Referring Provider Specialty: Family Practice Address: [address] [place] [address], [id number] Email: [email or web address] Plan Of Care PT-OP-T Assessment and Plan Start: 11/30/23 16:45 Freq: Status: Active Protocol: Document 11/30/23 16:10 DCW (Rec: 12/03/23 10:55 DCW [id number]) Physical Therapy Assessment Rehab Potential Rehabilitation Potential Good Evaluation Complexity Number of Personal Factors/Comorbidities 3 or More Number of Body Systems Impaired 4 or More Clinical Presentation at Evaluation Evolving Impairments Impairments Activity Tolerance,Balance, Functional Activities, Functional Mobility,Soft Tissue Mobility,Strength Other Concerns Fall Risk Yes, per scores on Hicks (42/56 ) and DGI () Goals Three Impairment MMT of B hip flex/abd, and B knee flex/ext tested at 4-/5 or weaker Long-Term Goal (LTG) Pt to demonstrate MMT of 4/5 or greater in all tested planes of bilateral hips and knees in order to improve dynamic stability. LTG Duration 02/28/24 Two Impairment Pt scores as in increased falls risk on Hicks Balance scale (42/56) Multiple Cut Off Saw Operator Goal (LTG) Pt to increase score on Hicks Balance scale by at least 4 points to 46/56 in order to demonstrate decrease in falls risk LTG Duration 02/28/24 One Impairment Pt does not have an appropriate home exercise program Short Term Goal (STG) Pt to be independent and compliant with an appropriate HEP STG Duration 12/31/23 Assessment Summary Assessment Pt presents with signs and symptoms consistent with referring diagnosis. Pt has experienced a decline in functional mobility, activity tolerance, strength, and stability for the past few years following a TIA. Pt testing shows in increased risk of falls, per scores on Hicks (42/56) and DGI (18/24). Additionally, pt MMT of B hip flex/abd, and B knee flex/ext tested at 4-/5 or weaker. Negative effects on functional mobility and stability during gait. Pt should benefit from skilled therapeutic intervention focusing on LE strength, balance training, increased activity tolerance, and gait training. Physical Therapy Plan Frequency and Duration Frequency of Treatment 2x/Week Plan of Care Start Date 11/30/23 Plan of Care End Date 02/28/24 Therapeutic Interventions Therapeutic Interventions Balance Training,Gait Training ,Home Exercise Program,Joint Mobilizations,Manual Therapy, Neuromuscular Re-education, Patient/Caregiver Education, Self-Care/Home Management,Soft Tissue Mobilization, Therapeutic Activities, Therapeutic Exercises Next Visit Focus/Plan Next Note Type Treatment Note Next Visit Plan Hip/knee strengthening, Static /dynamic balance challenges, ambulation on uneven surfaces, increased activity tolerance. Plan of Care Dates Plan of Care Start Date 11/30/23 Plan of Care End Date 02/28/24 Electronically Signed by: Diego Montelongo, PT 12/03/23 0547 If you are in agreement with this Plan of Care, please return a signed and dated copy. I have reviewed this Plan of Care and certify that the skilled therapy services above are required to meet the patient?s needs. Physician Signature Date Printed Name and Credentials Clinical Instructor Signature Printed Name and Credentials
--- NOTE | 2023-12-03 16:00 | PT.OTN ---
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, unspecified (12/03/23) Physical Therapy Treatment Note PT-OP-A Visit Information Start: 11/30/23 16:45 Freq: Status: Active Protocol: Document 12/03/23 15:15 DCW (Rec: 12/03/23 16:00 DCW [id number]) Out-Patient Physical Therapy Visit Information Visit Information Visit Type Treatment Note Visit Start Time 15:15 Visit Stop Time 16:00 Visit Number 2 Number of ELASTIC ATTACHER CHAINSTITCH Visits 0 Evaluation Information Evaluation Date 11/30/23 PT-OP-B Current Condition Start: 11/30/23 16:45 Freq: Status: Active Protocol: Document 11/30/23 16:10 DCW (Rec: 12/03/23 09:43 DCW [id number]) Current Condition History of Current Condition Onset Date Multi-year history Current Complaints Weakness, deconditioning, imbalance History of Current Condition Pt is an 88 year old female presenting with a multi-year history of worsening balance, weakness, and instability, which has resulted in a few falls. Pt reports she suffered a TIA a few years ago, minimal lingering physical effects, other than just deconditioning, as she has decreased her activity level, but admits that it has greatly increased her emotional liability, pt even began crying walking back from the waiting room, noted she didn't know why and wasn't feeling upset. Admits she doesn't exercise enough. Comes in to her initial evaluation with a SPC, but admits she uses it infrequently. Pt's son attends eval with her, pt moved in [place] Treatment Goals Patient/Caregiver Goals Increase strength and activity [place]elrance, decrease falls risk Personal Factors Other Personal Factors That May Effect Hz of TIA, Hx of R TKA, R JAMAR, Therapy/Recovery memory loss, [place], multiple falls PT-OP-C Subjective Start: 11/30/23 16:45 Freq: Status: Active Protocol: Document 12/03/23 15:15 DCW (Rec: 12/03/23 16:00 DCW [id number]) OP-PT Subjective Patient Comments Patient Comments Well, I'm here. Notes ongoing joint pain in her arms , but otherwise feeling alright today. PT-OP-D Balance Start: 11/30/23 16:45 Freq: Status: Active Protocol: Document 11/30/23 16:10 DCW (Rec: 11/30/23 16:50 DCW [id number]) Balance Tests Hicks Balance Test Hicks Balance Test Score 42/56 Hicks Balance Assessment Evaluation Sitting to Standing Ability Independent w/out Hands Unsupported Stance Safely- 2 minutes Sitting Unsupported, Feet on Floor Safely- 2 minutes Standing to Sitting Ability Assist, Use Legs on Chair Transfer Ability Safely, Hand Use Unsupported Stance- Eyes Closed Safely, 10 seconds Unsupported Stance- Eyes Open Supervision to maintain Reaching Forward Standing Safely, 5 inches Pick- Up Object From Floor Supervision Look Behind Shoulder - Standing Shifts Weight Unilateral Turning 360 Degrees Turns Bilateral, < 4 secs Unsupported Stance, Alternating Feet on 4 Steps w/Supervision Stair Unsupported Tandem Stance Small Step- 30 seconds Unilateral Leg Stance Lifts Leg/Unable to Hold Total Score Hicks Total Score (out of 56 points) 42 Hicks Impairment Rating 20 to 39% Impaired (Score 34- 44) PT-OP-E Functional Tests Start: 11/30/23 16:45 Freq: Status: Active Protocol: Document 11/30/23 16:10 DCW (Rec: 11/30/23 16:50 DCW [id number]) Functional Tests Dynamic Gait Index (DGI) Score 18/24 DGI Impairment Rating 20 to <40% Impaired (Score 15- 19) PT-OP-M Strength Start: 11/30/23 16:45 Freq: Status: Active Protocol: Document 11/30/23 16:10 DCW (Rec: 11/30/23 16:50 DCW [id number]) Hip Strength Hip Manual Muscle Testing Right Flexion (L2) 4- Good- Abduction 4- Good- Adduction 4 Good External Rotation 4 Good Internal Rotation 4 Good Left Flexion (L2) 3+ Fair+ Abduction 4- Good- Adduction 4 Good External Rotation 4 Good Internal Rotation 4 Good Knee Strength Knee Manual Muscle Testing Right Flexion (S2) 3+ Fair+ Extension (L3) 4- Good- Left Flexion (S2) 4- Good- Extension (L3) 4- Good- PT-OP-Q Treatments Start: 11/30/23 16:45 Freq: Status: Active Protocol: Document 12/03/23 15:15 DCW (Rec: 12/03/23 16:00 DCW [id number]) Cardio Equipment Recumbent Elliptical (Biodex) Duration (Minutes) 5 Resistance 4 Seat Position 8 Gym Equipment Shuttle Recovery Bilateral Heel Raises Resistance 50# Unilateral Squats Resistance 37# Bilateral Squats Resistance 75# Therapeutic Exercises Standing Exercises Hip Extension Standing Exercise Name Hip Extension Side bilateral Resistance Green loop Other Exercises Resisted Ambulation Other Exercise Name Resisted side-stepping Resistance Green loop Neuro Re-Education Treatment Balance Activities Hurdles Details Hurdles Comments Fwd, Side-stepping Foam Details Foam Stance Surface AirEx Comments EO/EC Tandem Details Tandem Gait Equipment // bars PT-OP-T Assessment and Plan Start: 11/30/23 16:45 Freq: Status: Active Protocol: Document 12/03/23 15:15 DCW (Rec: 12/03/23 16:00 DCW [id number]) Physical Therapy Assessment Impairments Impairments Activity Tolerance,Balance, Functional Activities, Functional Mobility,Soft Tissue Mobility,Strength Goals Three Impairment MMT of B hip flex/abd, and B knee flex/ext tested at 4-/5 or weaker Nursing Home Goal (LTG) Pt to demonstrate MMT of 4/5 or greater in all tested planes of bilateral hips and knees in order to improve dynamic stability. LTG Duration 02/28/24 Two Impairment Pt scores as in increased falls risk on Hicks Balance scale (42/56) Nursing Home Goal (LTG) Pt to increase score on Hicks Balance scale by at least 4 points to 46/56 in order to demonstrate decrease in falls risk LTG Duration 02/28/24 One Impairment Pt does not have an appropriate home exercise program Short Term Goal (STG) Pt to be independent and compliant with an appropriate HEP STG Duration 12/31/23 Assessment Summary Assessment Pt noted fatigue with activity today, but overall felt good getting up and moving more than she has been recently. Next visit plan to provide HEP handout for side-stand, side- stepping, and seated LE strengthening. Physical Therapy Plan Frequency and Duration Frequency of Treatment 2x/Week Plan of Care Start Date 11/30/23 Plan of Care End Date 02/28/24 Therapeutic Interventions Therapeutic Interventions Balance Training,Gait Training ,Home Exercise Program,Joint Mobilizations,Manual Therapy, Neuromuscular Re-education, Patient/Caregiver Education, Self-Care/Home Management,Soft Tissue Mobilization, Therapeutic Activities, Therapeutic Exercises Next Visit Focus/Plan Next Note Type Treatment Note Next Visit Plan Hip/knee strengthening, Static /dynamic balance challenges, ambulation on uneven surfaces, increased activity tolerance.
--- NOTE | 2023-12-06 16:45 | PT.OTN ---
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, unspecified (12/06/23) Physical Therapy Treatment Note PT-OP-A Visit Information Start: 11/30/23 16:45 Freq: Status: Active Protocol: Document 12/06/23 15:08 SW (Rec: 12/06/23 16:27 SW [id number]) Out-Patient Physical Therapy Visit Information Visit Information Visit Type Treatment Note Visit Start Time 15:18 Visit Stop Time 15:56 Visit Number 3 Number of ENGRAVED ROLLER INSPECTOR Visits 1 PT-OP-B Current Condition Start: 11/30/23 16:45 Freq: Status: Active Protocol: Document 11/30/23 16:10 DCW (Rec: 12/03/23 09:43 DCW [id number]) Current Condition History of Current Condition Onset Date Multi-year history Current Complaints Weakness, deconditioning, imbalance History of Current Condition Pt is an 88 year old female presenting with a multi-year history of worsening balance, weakness, and instability, which has resulted in a few falls. Pt reports she suffered a TIA a few years ago, minimal lingering physical effects, other than just deconditioning, as she has decreased her activity level, but admits that it has greatly increased her emotional liability, pt even began crying walking back from the waiting room, noted she didn't know why and wasn't feeling upset. Admits she doesn't exercise enough. Comes in to her initial evaluation with a SPC, but admits she uses it infrequently. Pt's son attends eval with her, pt moved in with him ~8 months ago after moving from the [facility]. Treatment Goals Patient/Caregiver Goals Increase strength and activity [place]elrance, decrease falls risk Personal Factors Other Personal Factors That May Effect Hz of TIA, Hx of R TKA, R JAMAR, Therapy/Recovery memory loss, [place], multiple falls PT-OP-C Subjective Start: 11/30/23 16:45 Freq: Status: Active Protocol: Document 12/06/23 15:08 SW (Rec: 12/06/23 16:27 SW [id number]) OP-PT Subjective Patient Comments Patient Comments I'm here Pain in arms since stroke, aggravating when going to do things arms hurt. PT-OP-D Balance Start: 11/30/23 16:45 Freq: Status: Active Protocol: Document 11/30/23 16:10 DCW (Rec: 11/30/23 16:50 DCW [id number]) Balance Tests Hicks Balance Test Hicks Balance Test Score 42/56 Hicks Balance Assessment Evaluation Sitting to Standing Ability Independent w/out Hands Unsupported Stance Safely- 2 minutes Sitting Unsupported, Feet on Floor Safely- 2 minutes Standing to Sitting Ability Assist, Use Legs on Chair Transfer Ability Safely, Hand Use Unsupported Stance- Eyes Closed Safely, 10 seconds Unsupported Stance- Eyes Open Supervision to maintain Reaching Forward Standing Safely, 5 inches Pick- Up Object From Floor Supervision Look Behind Shoulder - Standing Shifts Weight Unilateral Turning 360 Degrees Turns Bilateral, < 4 secs Unsupported Stance, Alternating Feet on 4 Steps w/Supervision Stair Unsupported Tandem Stance Small Step- 30 seconds Unilateral Leg Stance Lifts Leg/Unable to Hold Total Score Hicks Total Score (out of 56 points) 42 Hicks Impairment Rating 20 to 39% Impaired (Score 34- 44) PT-OP-E Functional Tests Start: 11/30/23 16:45 Freq: Status: Active Protocol: Document 11/30/23 16:10 DCW (Rec: 11/30/23 16:50 DCW [id number]) Functional Tests Dynamic Gait Index (DGI) Score 1824 DGI Impairment Rating 20 to <40% Impaired (Score 15- 19) PT-OP-M Strength Start: 11/30/23 16:45 Freq: Status: Active Protocol: Document 11/30/23 16:10 DCW (Rec: 11/30/23 16:50 DCW [id number]) Hip Strength Hip Manual Muscle Testing Right Flexion (L2) 4- Good- Abduction 4- Good- Adduction 4 Good External Rotation 4 Good Internal Rotation 4 Good Left Flexion (L2) 3+ Fair+ Abduction 4- Good- Adduction 4 Good External Rotation 4 Good Internal Rotation 4 Good Knee Strength Knee Manual Muscle Testing Right Flexion (S2) 3+ Fair+ Extension (L3) 4- Good- Left Flexion (S2) 4- Good- Extension (L3) 4- Good- PT-OP-Q Treatments Start: 11/30/23 16:45 Freq: Status: Active Protocol: Document 12/06/23 15:08 SW (Rec: 12/06/23 16:27 SW [id number]) Cardio Equipment Recumbent Elliptical (Biodex) Duration (Minutes) 8 Resistance 4 Seat Position 8 Other UE/LE>LE only dt pain in UE Gym Equipment Shuttle Recovery Unilateral Squats Resistance 37# Bilateral Squats Resistance 75# Therapeutic Exercises Sitting Exercises Hip Flexion Sitting Exercise Name hip flexion (marching) Side bilateral Resistance Green TB Reps/Minutes 2 x 10 ea Knee Flex/Ext Sitting Exercise Name Knee flex/ext Side bilateral Resistance Green TB Reps/Minutes 2 x 10 Standing Exercises Hip Extension Standing Exercise Name Hip Extension Side bilateral Resistance Green loop Comments cues to decrease trunk flexion Other Exercises Resisted Ambulation Other Exercise Name Resisted side-stepping Resistance Green loop PT-OP-T Assessment and Plan Start: 11/30/23 16:45 Freq: Status: Active Protocol: Document 12/06/23 15:08 (Rec: 12/06/23 16:27 [id number]) Physical Therapy Assessment Goals Three Impairment MMT of B hip flex/abd, and B knee flex/ext tested at 4-/5 or weaker Torch Operator Goal (LTG) Pt to demonstrate MMT of 4/5 or greater in all tested planes of bilateral hips and knees in order to improve dynamic stability. LTG Duration 02/28/24 Two Impairment Pt scores as in increased falls risk on Hicks Balance scale (42/56) Torch Operator Goal (LTG) Pt to increase score on Hicks Balance scale by at least 4 points to 46/56 in order to demonstrate decrease in falls risk LTG Duration 02/28/24 One Impairment Pt does not have an appropriate home exercise program Short Term Goal (STG) Pt to be independent and compliant with an appropriate HEP STG Duration 12/31/23 Torch Operator Goal (LTG) HEP HO issued 12/06/23: Resisted Side stepping, seated hip flexion with band, seated knee flex/ext with band Assessment Summary Assessment Reviewed therex and issued HEP HO for resisted side step ( educted pt and son on counter support for balance and safety ), Seated hip flexion, knee flex/ext. Reviewed hip ext, verbal cues for correct execution and control, did not issue HEP for hip ext this session, plan to review and issue HEP next session as able . Pt reports fatigue throughout ther ex today, but tolerated session well with occasional rest breaks. Physical Therapy Plan Frequency and Duration Frequency of Treatment 2x/Week Plan of Care Start Date 11/30/23 Plan of Care End Date 02/28/24 Therapeutic Interventions Therapeutic Interventions Balance Training,Gait Training ,Home Exercise Program,Joint Mobilizations,Manual Therapy, Neuromuscular Re-education, Patient/Caregiver Education, Self-Care/Home Management,Soft Tissue Mobilization, Therapeutic Activities, Therapeutic Exercises Next Visit Focus/Plan Next Note Type Treatment Note Next Visit Plan Hip/knee strengthening, Static /dynamic balance challenges, ambulation on uneven surfaces, increased activity tolerance.
--- NOTE | 2023-12-17 15:16 | PT.OTN ---
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, unspecified (12/17/23) Physical Therapy Treatment Note PT-OP-A Visit Information Start: 11/30/23 16:45 Freq: Status: Active Protocol: Document 12/17/23 14:33 SP (Rec: 12/17/23 15:25 SP [id number]) Out-Patient Physical Therapy Visit Information Visit Information Visit Type Treatment Note Visit Start Time 14:33 Visit Stop Time 15:16 Visit Number 5 Number of DIRECT CARE STAFFER Visits 3 Evaluation Information Evaluation Date 11/30/23 PT-OP-B Current Condition Start: 11/30/23 16:45 Freq: Status: Active Protocol: Document 11/30/23 16:10 DCW (Rec: 12/03/23 09:43 DCW [id number]) Current Condition History of Current Condition Onset Date Multi-year history Current Complaints Weakness, deconditioning, imbalance History of Current Condition Pt is an 88 year old female presenting with a multi-year history of worsening balance, weakness, and instability, which has resulted in a few falls. Pt reports she suffered a TIA a few years ago, minimal lingering physical effects, other than just deconditioning, as she has decreased her activity level, but admits that it has greatly increased her emotional liability, pt even began crying walking back from the waiting room, noted she didn't know why and wasn't feeling upset. Admits she doesn't exercise enough. Comes in to her initial evaluation with a SPC, but admits she uses it infrequently. Pt's son attends eval with her, pt moved in with him ~8 months ago [place]. Treatment Goals Patient/Caregiver Goals Increase strength and activity [place], decrease falls risk Personal Factors Other Personal Factors That May Effect Hz of TIA, Hx of R TKA, R JAMAR, Therapy/Recovery memory loss, [place], multiple falls PT-OP-C Subjective Start: 11/30/23 16:45 Freq: Status: Active Protocol: Document 12/17/23 14:33 SP (Rec: 12/17/23 15:25 SP [id number]) OP-PT Subjective Patient Comments Patient Comments Pt reports her feet and leg dont need the exercise but her arms do, doesn't have strength in arms and causes trouble sleeping and rolling over in bed they are a mess. Pt states her memory isn't good. Pt stated her arms are very weak, wanting to incorporate UE strengthening to help do ADLs. PT-OP-D Balance Start: 11/30/23 16:45 Freq: Status: Active Protocol: Document 11/30/23 16:10 DCW (Rec: 11/30/23 16:50 DCW [id number]) Balance Tests Hicks Balance Test Hicks Balance Test Score 42/56 Hicks Balance Assessment Evaluation Sitting to Standing Ability Independent w/out Hands Unsupported Stance Safely- 2 minutes Sitting Unsupported, Feet on Floor Safely- 2 minutes Standing to Sitting Ability Assist, Use Legs on Chair Transfer Ability Safely, Hand Use Unsupported Stance- Eyes Closed Safely, 10 seconds Unsupported Stance- Eyes Open Supervision to maintain Reaching Forward Standing Safely, 5 inches Pick- Up Object From Floor Supervision Look Behind Shoulder - Standing Shifts Weight Unilateral Turning 360 Degrees Turns Bilateral, < 4 secs Unsupported Stance, Alternating Feet on 4 Steps w/Supervision Stair Unsupported Tandem Stance Small Step- 30 seconds Unilateral Leg Stance Lifts Leg/Unable to Hold Total Score Hicks Total Score (out of 56 points) 42 Hicks Impairment Rating 20 to 39% Impaired (Score 34- 44) PT-OP-E Functional Tests Start: 11/30/23 16:45 Freq: Status: Active Protocol: Document 11/30/23 16:10 DCW (Rec: 11/30/23 16:50 DCW [id number]) Functional Tests Dynamic Gait Index (DGI) Score 18/24 DGI Impairment Rating 20 to <40% Impaired (Score 15- 19) PT-OP-M Strength Start: 11/30/23 16:45 Freq: Status: Active Protocol: Document 11/30/23 16:10 DCW (Rec: 11/30/23 16:50 DCW [id number]) Hip Strength Hip Manual Muscle Testing Right Flexion (L2) 4- Good- Abduction 4- Good- Adduction 4 Good External Rotation 4 Good Internal Rotation 4 Good Left Flexion (L2) 3+ Fair+ Abduction 4- Good- Adduction 4 Good External Rotation 4 Good Internal Rotation 4 Good Knee Strength Knee Manual Muscle Testing Right Flexion (S2) 3+ Fair+ Extension (L3) 4- Good- Left Flexion (S2) 4- Good- Extension (L3) 4- Good- PT-OP-Q Treatments Start: 11/30/23 16:45 Freq: Status: Active Protocol: Document 12/17/23 14:33 SP (Rec: 12/17/23 15:25 SP [id number]) Therapeutic Exercises Sitting Exercises tricep push up Sitting Exercise Name trialed Side bilateral Resistance AROM Equipment Used mesh chair arm rests Reps/Minutes 2 Comments bothersome to L UE- stopped Shoulder ROM Sitting Exercise Name 1. rolls 2. squeezes 3. AROM FF 4. Shld ER Reps/Minutes 5 reps each 1, 3, 4; 2 5 SH x10 Comments cues for painfree range. Hip Flexion Sitting Exercise Name hip flexion (marching) Side bilateral Resistance [place] Equipment Used visual target L>R Reps/Minutes 2 x 10 ea Comments cues for eccentric control, sitting Edge of chair, slower pacing Knee Flex/Ext Sitting Exercise Name Knee flex &ext Side bilateral Resistance [place] at ankles Reps/Minutes 2 x 10 Comments cued and target to kick to, provided demo copy Self-Care/Home Management Treatment Education Patient Education Body Mechanics,Home Exercise Program,Joint Protection,Pain Management Other Education Noted pt's cane was to high lowered 2 knotches end tx prior to leaving, decrease L shld elevation and less tension reported in L shld. Added UE AROM: ER, punch HO, shld rolls and squeezes. PT-OP-T Assessment and Plan Start: 11/30/23 16:45 Freq: Status: Active Protocol: Document 12/17/23 14:33 SP (Rec: 12/17/23 15:25 SP [id number]) Physical Therapy Assessment Goals Three Impairment MMT of B hip flex/abd, and B knee flex/ext tested at 4-/5 or weaker Window Machine Operator Goal (LTG) Pt to demonstrate MMT of 4/5 or greater in all tested planes of bilateral hips and knees in order to improve dynamic stability. LTG Duration 02/28/24 Two Impairment Pt scores as in increased falls risk on Hicks Balance scale (42/56) Window Machine Operator Goal (LTG) Pt to increase score on Hicks Balance scale by at least 4 points to 46/56 in order to demonstrate decrease in falls risk LTG Duration 02/28/24 One Impairment Pt does not have an appropriate home exercise program Short Term Goal (STG) Pt to be independent and compliant with an appropriate HEP STG Duration 12/31/23 Window Machine Operator Goal (LTG) HEP HO issued 12/06/23: Resisted Side stepping, seated hip flexion with band, seated knee flex/ext with band Assessment Summary Assessment Pt good response muscle tiring during LE exercises, cues and use of handouts required for recall and proper form. Education on importance of HEP performance at home for carryover progression toward her goals of being able to do more for herself, reaching into cupboard and getting off floor if had to, don't think could right now. Provided per pt request addition of UE AROM and initiate limb weight strengthening and after speaking with primary PT Cristopher, addition of UE exercises can support fall recovery. Pt made improvement of UE overhead reaching R>L UE with repetitions although L deloid uncomfortable felt better doing more functional activities today. Noted pt's cane was 2 knotches to high and causing L shld elevation, improved and pt commented I can move my cane better when walking. Physical Therapy Plan Frequency and Duration Frequency of Treatment 2x/Week Plan of Care Start Date 11/30/23 Plan of Care End Date 02/28/24 Therapeutic Interventions Therapeutic Interventions Balance Training,Gait Training ,Home Exercise Program,Joint Mobilizations,Manual Therapy, Neuromuscular Re-education, Patient/Caregiver Education, Self-Care/Home Management,Soft Tissue Mobilization, Therapeutic Activities, Therapeutic Exercises Next Visit Focus/Plan Next Note Type Treatment Note Next Visit Plan PT agreed pt request addition of UE strengthening can help support fall recovery. REview HEP next tx and progress balance activities. POC: Hip/knee strengthening, Static/dynamic balance challenges, ambulation on uneven surfaces, increased activity tolerance.
--- NOTE | 2023-12-19 12:41 | PT.OTN ---
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, unspecified (12/19/23) Physical Therapy Treatment Note PT-OP-A Visit Information Start: 11/30/23 16:45 Freq: Status: Active Protocol: Document 12/19/23 12:00 DCW (Rec: 12/19/23 12:41 DCW [id number]) Out-Patient Physical Therapy Visit Information Visit Information Visit Type Treatment Note Visit Start Time 12:00 Visit Stop Time 12:45 Visit Number 6 Number of RN LIAISON Visits 0 Evaluation Information Evaluation Date 11/30/23 PT-OP-B Current Condition Start: 11/30/23 16:45 Freq: Status: Active Protocol: Document 11/30/23 16:10 DCW (Rec: 12/03/23 09:43 DCW [id number]) Current Condition History of Current Condition Onset Date Multi-year history Current Complaints Weakness, deconditioning, imbalance History of Current Condition Pt is an 88 year old female presenting with a multi-year history of worsening balance, weakness, and instability, which has resulted in a few falls. Pt reports she suffered a TIA a few years ago, minimal lingering physical effects, other than just deconditioning, as she has decreased her activity level, but admits that it has greatly increased her emotional liability, pt even began crying walking back from the waiting room, noted she didn't know why and wasn't feeling upset. Admits she doesn't exercise enough. Comes in to her initial evaluation with a SPC, but admits she uses it infrequently. Pt's son attends eval with her, pt moved in with him [place] Treatment Goals Patient/Caregiver Goals Increase strength and activity [place], decrease falls risk Personal Factors Other Personal Factors That May Effect Hz of TIA, Hx of R TKA, R JAMAR, Therapy/Recovery memory loss, [place], multiple falls PT-OP-C Subjective Start: 11/30/23 16:45 Freq: Status: Active Protocol: Document 12/19/23 12:00 DCW (Rec: 12/19/23 12:41 DCW [id number]) OP-PT Subjective Patient Comments Patient Comments Pt reports she slept poorly, so she's struggling more today . Admits has difficulty with her HEP because her shoulders are a wreck. PT-OP-D Balance Start: 11/30/23 16:45 Freq: Status: Active Protocol: Document 11/30/23 16:10 DCW (Rec: 11/30/23 16:50 DCW [id number]) Balance Tests Hicks Balance Test Hicks Balance Test Score 42/56 Hicks Balance Assessment Evaluation Sitting to Standing Ability Independent w/out Hands Unsupported Stance Safely- 2 minutes Sitting Unsupported, Feet on Floor Safely- 2 minutes Standing to Sitting Ability Assist, Use Legs on Chair Transfer Ability Safely, Hand Use Unsupported Stance- Eyes Closed Safely, 10 seconds Unsupported Stance- Eyes Open Supervision to maintain Reaching Forward Standing Safely, 5 inches Pick- Up Object From Floor Supervision Look Behind Shoulder - Standing Shifts Weight Unilateral Turning 360 Degrees Turns Bilateral, < 4 secs Unsupported Stance, Alternating Feet on 4 Steps w/Supervision Stair Unsupported Tandem Stance Small Step- 30 seconds Unilateral Leg Stance Lifts Leg/Unable to Hold Total Score Hicks Total Score (out of 56 points) 42 Hicks Impairment Rating 20 to 39% Impaired (Score 34- 44) PT-OP-E Functional Tests Start: 11/30/23 16:45 Freq: Status: Active Protocol: Document 11/30/23 16:10 DCW (Rec: 11/30/23 16:50 DCW [id number]) Functional Tests Dynamic Gait Index (DGI) Score 18/24 DGI Impairment Rating 20 to <40% Impaired (Score 15- 19) PT-OP-M Strength Start: 11/30/23 16:45 Freq: Status: Active Protocol: Document 11/30/23 16:10 DCW (Rec: 11/30/23 16:50 DCW [id number]) Hip Strength Hip Manual Muscle Testing Right Flexion (L2) 4- Good- Abduction 4- Good- Adduction 4 Good External Rotation 4 Good Internal Rotation 4 Good Left Flexion (L2) 3+ Fair+ Abduction 4- Good- Adduction 4 Good External Rotation 4 Good Internal Rotation 4 Good Knee Strength Knee Manual Muscle Testing Right Flexion (S2) 3+ Fair+ Extension (L3) 4- Good- Left Flexion (S2) 4- Good- Extension (L3) 4- Good- PT-OP-Q Treatments Start: 11/30/23 16:45 Freq: Status: Active Protocol: Document 12/19/23 12:00 DCW (Rec: 12/19/23 12:41 DCW [id number]) Cardio Equipment Recumbent Elliptical ([employer]) Duration (Minutes) 7 Resistance 5 Seat Position 8 Other LE only dt pain in UE Therapeutic Exercises Standing Exercises Rows Standing Exercise Name Rows Side bilateral Resistance [place] Shoulder Extension Standing Exercise Name Shoulder Extension Side bilateral Resistance [place] Other Exercises Sit<->Stand Other Exercise Name Sit<->Stand Resistance Ggreen loop Equipment Used Low table Neuro Re-Education Treatment Balance Activities Hurdles Details Hurdles Comments Fwd, Side-stepping Foam Details NBOS Surface AirEx Comments EO/EC, Head turns PT-OP-T Assessment and Plan Start: 11/30/23 16:45 Freq: Status: Active Protocol: Document 12/19/23 12:00 DCW (Rec: 12/19/23 12:41 DCW [id number]) Physical Therapy Assessment Impairments Impairments Activity Tolerance,Balance, Functional Activities, Functional Mobility,Soft Tissue Mobility,Strength Goals Three Impairment MMT of B hip flex/abd, and B knee flex/ext tested at 4-/5 or weaker Commanding Officer Garage Goal (LTG) Pt to demonstrate MMT of 4/5 or greater in all tested planes of bilateral hips and knees in order to improve dynamic stability. LTG Duration 02/28/24 Two Impairment Pt scores as in increased falls risk on Hicks Balance scale (42/56) Prison Goal (LTG) Pt to increase score on Hicks Balance scale by at least 4 points to 46/56 in order to demonstrate decrease in falls risk LTG Duration 02/28/24 One Impairment Pt does not have an appropriate home exercise program Short Term Goal (STG) Pt to be independent and compliant with an appropriate HEP STG Duration 12/31/23 Commanding Officer Garage Goal (LTG) HEP HO issued 12/06/23: Resisted Side stepping, seated hip flexion with band, seated knee flex/ext with band Assessment Summary Assessment Additional shoulder exercises to help with fall recovery. Notes pain disturbing sleep. Showing some progress with activity tolerance Physical Therapy Plan Frequency and Duration Frequency of Treatment 2x/Week Plan of Care Start Date 11/30/23 Plan of Care End Date 02/28/24 Therapeutic Interventions Therapeutic Interventions Balance Training,Gait Training ,Home Exercise Program,Joint Mobilizations,Manual Therapy, Neuromuscular Re-education, Patient/Caregiver Education, Self-Care/Home Management,Soft Tissue Mobilization, Therapeutic Activities, Therapeutic Exercises Next Visit Focus/Plan Next Note Type Treatment Note Next Visit Plan POC: Hip/knee/shoulder strengthening, Static/dynamic balance challenges, ambulation on uneven surfaces, increased activity tolerance.
--- NOTE | 2023-12-26 17:19 | PT.OTN ---
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, unspecified (12/26/23) Physical Therapy Treatment Note PT-OP-A Visit Information Start: 11/30/23 16:45 Freq: Status: Active Protocol: Document 12/26/23 16:17 NBM (Rec: 12/26/23 17:18 NBM [id number]) Out-Patient Physical Therapy Visit Information Visit Information Visit Type Treatment Note Visit Start Time 16:10 Visit Stop Time 17:00 Visit Number 7 Number of TILE SETTER SUPERVISOR Visits 1 PT-OP-B Current Condition Start: 11/30/23 16:45 Freq: Status: Active Protocol: Document 11/30/23 16:10 DCW (Rec: 12/03/23 09:43 DCW [id number]) Current Condition History of Current Condition Onset Date Multi-year history Current Complaints Weakness, deconditioning, imbalance History of Current Condition Pt is an 88 year old female presenting with a multi-year history of worsening balance, weakness, and instability, which has resulted in a few falls. Pt reports she suffered a TIA a few years ago, minimal lingering physical effects, other than just deconditioning, as she has decreased her activity level, but admits that it has greatly increased her emotional liability, pt even began crying walking back from the waiting room, noted she didn't know why and wasn't feeling upset. Admits she doesn't exercise enough. Comes in to her initial evaluation with a SPC, but admits she uses it infrequently. Pt's son attends eval with her, pt moved in with him ~8 months ago after moving [facility] Treatment Goals Patient/Caregiver Goals Increase strength and activity [place], decrease falls risk Personal Factors Other Personal Factors That May Effect Hz of TIA, Hx of R TKA, R JAMAR, Therapy/Recovery memory loss, [place], multiple falls PT-OP-C Subjective Start: 11/30/23 16:45 Freq: Status: Active Protocol: Document 12/26/23 16:17 NBM (Rec: 12/26/23 17:18 NBM [id number]) OP-PT Subjective Patient Comments Patient Comments Amy reports she walks but it doesn't seem to do any good. i have no strength. She walks in the yard which has gravel and dirt. Her sense of time comes and goes and she gets confused more easily; watching politics helps her mind but then she's sitting, and she does artwork but hasn' t been motivated to do it and depression comes and goes. My moods change quickly. She brings exercise handouts and therabands and states I haven 't done anything with these. She's not sleeping well. She lives where people are working outside her home where she lives with son in the gardens and she doesn't want them there because she doesn't have her own time to herself. Shoulders hurt, which is affecting sleep. She could paint but hasn't been motivated to. My body's in an argument with my brain. PT-OP-D Balance Start: 11/30/23 16:45 Freq: Status: Active Protocol: Document 11/30/23 16:10 DCW (Rec: 11/30/23 16:50 DCW [id number]) Balance Tests Hicks Balance Test Hicks Balance Test Score 42/56 Hicks Balance Assessment Evaluation Sitting to Standing Ability Independent w/out Hands Unsupported Stance Safely- 2 minutes Sitting Unsupported, Feet on Floor Safely- 2 minutes Standing to Sitting Ability Assist, Use Legs on Chair Transfer Ability Safely, Hand Use Unsupported Stance- Eyes Closed Safely, 10 seconds Unsupported Stance- Eyes Open Supervision to maintain Reaching Forward Standing Safely, 5 inches Pick- Up Object From Floor Supervision Look Behind Shoulder - Standing Shifts Weight Unilateral Turning 360 Degrees Turns Bilateral, < 4 secs Unsupported Stance, Alternating Feet on 4 Steps w/Supervision Stair Unsupported Tandem Stance Small Step- 30 seconds Unilateral Leg Stance Lifts Leg/Unable to Hold Total Score Hicks Total Score (out of 56 points) 42 Hicks Impairment Rating 20 to 39% Impaired (Score 34- 44) PT-OP-E Functional Tests Start: 11/30/23 16:45 Freq: Status: Active Protocol: Document 11/30/23 16:10 DCW (Rec: 11/30/23 16:50 DCW [id number]) Functional Tests Dynamic Gait Index (DGI) Score 18/24 DGI Impairment Rating 20 to <40% Impaired (Score 15- 19) PT-OP-M Strength Start: 11/30/23 16:45 Freq: Status: Active Protocol: Document 11/30/23 16:10 DCW (Rec: 11/30/23 16:50 DCW [id number]) Hip Strength Hip Manual Muscle Testing Right Flexion (L2) 4- Good- Abduction 4- Good- Adduction 4 Good External Rotation 4 Good Internal Rotation 4 Good Left Flexion (L2) 3+ Fair+ Abduction 4- Good- Adduction 4 Good External Rotation 4 Good Internal Rotation 4 Good Knee Strength Knee Manual Muscle Testing Right Flexion (S2) 3+ Fair+ Extension (L3) 4- Good- Left Flexion (S2) 4- Good- Extension (L3) 4- Good- PT-OP-Q Treatments Start: 11/30/23 16:45 Freq: Status: Active Protocol: Document 12/26/23 16:17 NBM (Rec: 12/26/23 17:18 NBM [id number]) Cardio Equipment Recumbent Elliptical ([employer]) Duration (Minutes) 12 Resistance 5>4 Seat Position 8 Other UE/LE>LE only dt pain in UEs, pt challenged to maintain 30 RPMs Therapeutic Exercises Sitting Exercises Scapular retraction Reps/Minutes 2x10 Comments tactile cues for scapular setting Therapeutic Activity Therapeutic Activity Sleep positioning Name in/out of bed, sidelying w/ pillows Comments HO reviewed and given. Cues for scapular setting and UT overactivation. PT-OP-T Assessment and Plan Start: 11/30/23 16:45 Freq: Status: Active Protocol: Document 12/26/23 16:17 NBM (Rec: 12/26/23 17:18 NBM [id number]) Physical Therapy Assessment Goals Three Impairment MMT of B hip flex/abd, and B knee flex/ext tested at 4-/5 or weaker School Guard Goal (LTG) Pt to demonstrate MMT of 4/5 or greater in all tested planes of bilateral hips and knees in order to improve dynamic stability. LTG Duration 02/28/24 Two Impairment Pt scores as in increased falls risk on Hicks Balance scale (42/56) Snf Goal (LTG) Pt to increase score on Hicks Balance scale by at least 4 points to 46/56 in order to demonstrate decrease in falls risk LTG Duration 02/28/24 One Impairment Pt does not have an appropriate home exercise program Short Term Goal (STG) Pt to be independent and compliant with an appropriate HEP STG Duration 12/31/23 School Guard Goal (LTG) HEP HO issued 12/06/23: Resisted Side stepping, seated hip flexion with band, seated knee flex/ext with band Assessment Summary Assessment Pt presents today w/ flat affect and has emotional release during session discussing depression and loss of conditioning and independence since moving after stroke, likely contributing to lack of motivation with HEP. Treatment focus on bed positioning to improve sleep due to shoulder pain R>L - HO given. Pt educated on diaphragmatic breathing for pain dampening via parasympathetic nervous system activation, and end of session w/ pt's consent son is educated on pt's current mental state and encouraged to attend next PT session with Amy to review HEP to improve carryover at home - son agrees. Discussion w/ pt of barriers and solutions for increasing HEP compliance, LE strengthening, and sleep positioning. Pt is challenged to maintain 35 RPMs on recumbent elliptical today even with resistance modified from Lvl 5 to Lvl 4. Physical Therapy Plan Frequency and Duration Frequency of Treatment 2x/Week Plan of Care Start Date 11/30/23 Plan of Care End Date 02/28/24 Therapeutic Interventions Therapeutic Interventions Balance Training,Gait Training ,Home Exercise Program,Joint Mobilizations,Manual Therapy, Neuromuscular Re-education, Patient/Caregiver Education, Self-Care/Home Management,Soft Tissue Mobilization, Therapeutic Activities, Therapeutic Exercises Next Visit Focus/Plan Next Note Type Treatment Note Next Visit Plan Next session: Review HEP w/ pt and son w/ education for how ex's contribute to goals to improve carryover at home. POC: Hip/knee/shoulder strengthening, Static/dynamic balance challenges, ambulation on uneven surfaces, increased activity tolerance.
--- NOTE | 2023-12-31 16:44 | PT.OTN ---
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, unspecified (12/31/23) Physical Therapy Treatment Note PT-OP-A Visit Information Start: 11/30/23 16:45 Freq: Status: Active Protocol: Document 12/31/23 16:00 DCW (Rec: 12/31/23 16:44 DCW [id number]) Out-Patient Physical Therapy Visit Information Visit Information Visit Type Treatment Note Visit Start Time 16:00 Visit Stop Time 16:45 Visit Number 8 Number of GEOPHYSICS TEACHER Visits 0 Evaluation Information Evaluation Date 11/30/23 PT-OP-B Current Condition Start: 11/30/23 16:45 Freq: Status: Active Protocol: Document 11/30/23 16:10 DCW (Rec: 12/03/23 09:43 DCW [id number]) Current Condition History of Current Condition Onset Date Multi-year history Current Complaints Weakness, deconditioning, imbalance History of Current Condition Pt is an 88 year old female presenting with a multi-year history of worsening balance, weakness, and instability, which has resulted in a few falls. Pt reports she suffered a TIA a few years ago, minimal lingering physical effects, other than just deconditioning, as she has decreased her activity level, but admits that it has greatly increased her emotional liability, pt even began crying walking back from the waiting room, noted she didn't know why and wasn't feeling upset. Admits she doesn't exercise enough. Comes in to her initial evaluation with a SPC, but admits she uses it infrequently. Pt's son attends eval with her, pt [place]. Treatment Goals Patient/Caregiver Goals Increase strength and activity [place], decrease falls risk Personal Factors Other Personal Factors That May Effect Hz of TIA, Hx of R TKA, R JAMAR, Therapy/Recovery memory loss, [place], multiple falls PT-OP-C Subjective Start: 11/30/23 16:45 Freq: Status: Active Protocol: Document 12/31/23 16:00 DCW (Rec: 12/31/23 16:44 DCW [id number]) OP-PT Subjective Patient Comments Patient Comments I know what will help, but I don't do it in regards to her HEP. Notes her shoulders continue to be problematic, and she has poor sleep. PT-OP-D Balance Start: 11/30/23 16:45 Freq: Status: Active Protocol: Document 11/30/23 16:10 DCW (Rec: 11/30/23 16:50 DCW [id number]) Balance Tests Hicks Balance Test Hicks Balance Test Score 42/56 Hicks Balance Assessment Evaluation Sitting to Standing Ability Independent w/out Hands Unsupported Stance Safely- 2 minutes Sitting Unsupported, Feet on Floor Safely- 2 minutes Standing to Sitting Ability Assist, Use Legs on Chair Transfer Ability Safely, Hand Use Unsupported Stance- Eyes Closed Safely, 10 seconds Unsupported Stance- Eyes Open Supervision to maintain Reaching Forward Standing Safely, 5 inches Pick- Up Object From Floor Supervision Look Behind Shoulder - Standing Shifts Weight Unilateral Turning 360 Degrees Turns Bilateral, < 4 secs Unsupported Stance, Alternating Feet on 4 Steps w/Supervision Stair Unsupported Tandem Stance Small Step- 30 seconds Unilateral Leg Stance Lifts Leg/Unable to Hold Total Score Hicks Total Score (out of 56 points) 42 Hicks Impairment Rating 20 to 39% Impaired (Score 34- 44) PT-OP-E Functional Tests Start: 11/30/23 16:45 Freq: Status: Active Protocol: Document 11/30/23 16:10 DCW (Rec: 11/30/23 16:50 DCW [id number]) Functional Tests Dynamic Gait Index (DGI) Score 18/24 DGI Impairment Rating 20 to <40% Impaired (Score 15- 19) PT-OP-M Strength Start: 11/30/23 16:45 Freq: Status: Active Protocol: Document 11/30/23 16:10 DCW (Rec: 11/30/23 16:50 DCW [id number]) Hip Strength Hip Manual Muscle Testing Right Flexion (L2) 4- Good- Abduction 4- Good- Adduction 4 Good External Rotation 4 Good Internal Rotation 4 Good Left Flexion (L2) 3+ Fair+ Abduction 4- Good- Adduction 4 Good External Rotation 4 Good Internal Rotation 4 Good Knee Strength Knee Manual Muscle Testing Right Flexion (S2) 3+ Fair+ Extension (L3) 4- Good- Left Flexion (S2) 4- Good- Extension (L3) 4- Good- PT-OP-Q Treatments Start: 11/30/23 16:45 Freq: Status: Active Protocol: Document 12/31/23 16:00 DCW (Rec: 12/31/23 16:44 DCW [id number]) Cardio Equipment Recumbent Elliptical (Biodex) Duration (Minutes) 6 Resistance 5 Seat Position 8 Therapeutic Exercises Sitting Exercises Curls Sitting Exercise Name Curls Side bilateral Resistance 2# Standing Exercises Shoulder Abduction Standing Exercise Name Shoulder Abduction Side bilateral Resistance 2# Shoulder Flexion Standing Exercise Name Shoulder Flexion Side bilateral Resistance 2# Rows Standing Exercise Name Rows Side bilateral Resistance Green Shoulder Extension Standing Exercise Name Shoulder Extension Side bilateral Resistance Green Other Exercises Resisted Ambulation Other Exercise Name Resisted side-stepping Resistance Green loop Reps/Minutes 2x10 ft ea Comments cues for toes fwd, upright posture Neuro Re-Education Treatment Balance Activities Hurdles Details Hurdles Comments Fwd, Side-stepping Foam Details NBOS Surface AirEx Comments EO/EC, Head turns PT-OP-T Assessment and Plan Start: 11/30/23 16:45 Freq: Status: Active Protocol: Document 12/31/23 16:00 DCW (Rec: 12/31/23 16:44 DCW [id number]) Physical Therapy Assessment Impairments Impairments Activity Tolerance,Balance, Functional Activities, Functional Mobility,Soft Tissue Mobility,Strength Goals Three Impairment MMT of B hip flex/abd, and B knee flex/ext tested at 4-/5 or weaker [facility] Goal (LTG) Pt to demonstrate MMT of 4/5 or greater in all tested planes of bilateral hips and knees in order to improve dynamic stability. LTG Duration 02/28/24 Two Impairment Pt scores as in increased falls risk on Hicks Balance scale (42/56) Alf Goal (LTG) Pt to increase score on Hicks Balance scale by at least 4 points to 46/56 in order to demonstrate decrease in falls risk LTG Duration 02/28/24 One Impairment Pt does not have an appropriate home exercise program Short Term Goal (STG) Pt to be independent and compliant with an appropriate HEP STG Duration 12/31/23 [facility] Goal (LTG) HEP HO issued 12/06/23: Resisted Side stepping, seated hip flexion with band, seated knee flex/ext with band Assessment Summary Assessment Continued discussion today on importance of compliance with HEP, pt understands that it's something she needs to do if she wants to move better and with less pain, just has poor self motivation. Physical Therapy Plan Frequency and Duration Frequency of Treatment 2x/Week Plan of Care Start Date 11/30/23 Plan of Care End Date 02/28/24 Therapeutic Interventions Therapeutic Interventions Balance Training,Gait Training ,Home Exercise Program,Joint Mobilizations,Manual Therapy, Neuromuscular Re-education, Patient/Caregiver Education, Self-Care/Home Management,Soft Tissue Mobilization, Therapeutic Activities, Therapeutic Exercises Next Visit Focus/Plan Next Note Type Treatment Note Next Visit Plan Next session: Review HEP w/ pt and son w/ education for how ex's contribute to goals to improve carryover at home. POC: Hip/knee/shoulder strengthening, Static/dynamic balance challenges, ambulation on uneven surfaces, increased activity tolerance.
--- NOTE | 2024-01-02 16:19 | PT.OTN ---
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, unspecified (01/02/24) Physical Therapy Treatment Note PT-OP-A Visit Information Start: 11/30/23 16:45 Freq: Status: Active Protocol: Document 01/02/24 15:20 AB (Rec: 01/02/24 16:18 AB [id number]) Out-Patient Physical Therapy Visit Information Visit Information Visit Type Treatment Note Visit Start Time 15:20 Visit Stop Time 16:04 Visit Number 9 Number of CARDING DOUBLER Visits 1 Evaluation Information Evaluation Date 11/30/23 PT-OP-B Current Condition Start: 11/30/23 16:45 Freq: Status: Active Protocol: Document 11/30/23 16:10 DCW (Rec: 12/03/23 09:43 DCW [id number]) Current Condition History of Current Condition Onset Date Multi-year history Current Complaints Weakness, deconditioning, imbalance History of Current Condition Pt is an 88 year old female presenting with a multi-year history of worsening balance, weakness, and instability, which has resulted in a few falls. Pt reports she suffered a TIA a few years ago, minimal lingering physical effects, other than just deconditioning, as she has decreased her activity level, but admits that it has greatly increased her emotional liability, pt even began crying walking back from the waiting room, noted she didn't know why and wasn't feeling upset. Admits she doesn't exercise enough. Comes in to her initial evaluation with a SPC, but admits she uses it infrequently. Pt's son attends eval with her, pt moved in with him ~8 months ago [place]. Treatment Goals Patient/Caregiver Goals Increase strength and activity [place], decrease falls risk Personal Factors Other Personal Factors That May Effect Hz of TIA, Hx of R TKA, R JAMAR, Therapy/Recovery memory loss, [place], multiple falls PT-OP-C Subjective Start: 11/30/23 16:45 Freq: Status: Active Protocol: Document 01/02/24 15:20 AB (Rec: 01/02/24 16:18 AB [id number]) OP-PT Subjective Patient Comments Patient Comments Patient reports she has not been doing the exercises, comment son brought her here. Patient complains of shoulder pain, attributes possibly to her shower. PT-OP-D Balance Start: 11/30/23 16:45 Freq: Status: Active Protocol: Document 11/30/23 16:10 DCW (Rec: 11/30/23 16:50 DCW [id number]) Balance Tests Hicks Balance Test Hicks Balance Test Score 42/56 Hicks Balance Assessment Evaluation Sitting to Standing Ability Independent w/out Hands Unsupported Stance Safely- 2 minutes Sitting Unsupported, Feet on Floor Safely- 2 minutes Standing to Sitting Ability Assist, Use Legs on Chair Transfer Ability Safely, Hand Use Unsupported Stance- Eyes Closed Safely, 10 seconds Unsupported Stance- Eyes Open Supervision to maintain Reaching Forward Standing Safely, 5 inches Pick- Up Object From Floor Supervision Look Behind Shoulder - Standing Shifts Weight Unilateral Turning 360 Degrees Turns Bilateral, < 4 secs Unsupported Stance, Alternating Feet on 4 Steps w/Supervision Stair Unsupported Tandem Stance Small Step- 30 seconds Unilateral Leg Stance Lifts Leg/Unable to Hold Total Score Hicks Total Score (out of 56 points) 42 Hicks Impairment Rating 20 to 39% Impaired (Score 34- 44) PT-OP-E Functional Tests Start: 11/30/23 16:45 Freq: Status: Active Protocol: Document 11/30/23 16:10 DCW (Rec: 11/30/23 16:50 DCW [id number]) Functional Tests Dynamic Gait Index (DGI) Score 18/24 DGI Impairment Rating 20 to <40% Impaired (Score 15- 19) PT-OP-M Strength Start: 11/30/23 16:45 Freq: Status: Active Protocol: Document 11/30/23 16:10 DCW (Rec: 11/30/23 16:50 DCW [id number]) Hip Strength Hip Manual Muscle Testing Right Flexion (L2) 4- Good- Abduction 4- Good- Adduction 4 Good External Rotation 4 Good Internal Rotation 4 Good Left Flexion (L2) 3+ Fair+ Abduction 4- Good- Adduction 4 Good External Rotation 4 Good Internal Rotation 4 Good Knee Strength Knee Manual Muscle Testing Right Flexion (S2) 3+ Fair+ Extension (L3) 4- Good- Left Flexion (S2) 4- Good- Extension (L3) 4- Good- PT-OP-Q Treatments Start: 11/30/23 16:45 Freq: Status: Active Protocol: Document 01/02/24 15:20 AB (Rec: 01/02/24 16:18 AB [id number]) Gym Equipment Shuttle Balance red Details normal JIM and minimal stagger Comments CGA with and without head turns and scanning Therapeutic Exercises Sitting Exercises Hip Flexion Sitting Exercise Name hip flexion (marching) Side bilateral Resistance Green TB Reps/Minutes 2 x 10 ea then X 2 Comments Patient ed rationale of this exercise for carryover to functional activitie Knee Flex/Ext Sitting Exercise Name Knee flex &ext Side bilateral Resistance Green TB at ankles Reps/Minutes 2 x 10 then X 3 Comments Patient ed to tie band in bow and push loop to ankles then extend one LE, Standing Exercises ambulation without device Standing Exercise Name with head turns and visual scanning Comments CGA Heel raise Standing Exercise Name bilateral Reps/Minutes X15 Comments verbal cues to lower heels slowly side stepping Side bilateral Reps/Minutes 2 min Comments verbal cues to avoid toeing out Neuro Re-Education Treatment Balance Activities marching on blue cushion Reps/Duration X12 Comments CGA hands above bars step up taps Equipment 6 inch step Reps/Duration X12 Comments hands over bars CGA Hurdles Details Hurdles Comments Fwd hands above CGA Tandem Details Tandem Gait Equipment // bars Comments CGA PT-OP-T Assessment and Plan Start: 11/30/23 16:45 Freq: Status: Active Protocol: Document 01/02/24 15:20 AB (Rec: 01/02/24 16:18 AB [id number]) Physical Therapy Assessment Goals Three Impairment MMT of B hip flex/abd, and B knee flex/ext tested at 4-/5 or weaker [facility] Goal (LTG) Pt to demonstrate MMT of 4/5 or greater in all tested planes of bilateral hips and knees in order to improve dynamic stability. LTG Duration 02/28/24 Two Impairment Pt scores as in increased falls risk on Hicks Balance scale (42/56) [facility] Goal (LTG) Pt to increase score on Hicks Balance scale by at least 4 points to 46/56 in order to demonstrate decrease in falls risk LTG Duration 02/28/24 One Impairment Pt does not have an appropriate home exercise program Short Term Goal (STG) Pt to be independent and compliant with an appropriate HEP STG Duration 12/31/23 [facility] Goal (LTG) HEP HO issued 12/06/23: Resisted Side stepping, seated hip flexion with band, seated knee flex/ext with band Assessment Summary Assessment Patient able to tie and position bands for HEP, notes added to HEP to use loop for long arc quad vs band tied to chair, with patient able to tie loop and position band. Patient reports she is fine end of session and when questioned specifically regarding shoulders, comments she will be OK. Physical Therapy Plan Frequency and Duration Frequency of Treatment 2x/Week Plan of Care Start Date 11/30/23 Plan of Care End Date 02/28/24 Next Visit Focus/Plan Next Note Type Treatment Note Next Visit Plan Static/dynamic balance challenges, ambulation on uneven surfaces, increased activity tolerance Assess HEP carryover
--- NOTE | 2024-01-15 16:41 | PT.OTN ---
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, unspecified (01/15/24) Physical Therapy Treatment Note PT-OP-A Visit Information Start: 11/30/23 16:45 Freq: Status: Active Protocol: Document 01/15/24 16:00 DCW (Rec: 01/15/24 16:38 DCW [id number]) Out-Patient Physical Therapy Visit Information Visit Information Visit Type Progress Note Visit Start Time 16:00 Visit Stop Time 16:45 Visit Number 11 Number of CLINICAL NURSE REVIEWER Visits 0 Evaluation Information Evaluation Date 11/30/23 PT-OP-B Current Condition Start: 11/30/23 16:45 Freq: Status: Active Protocol: Document 11/30/23 16:10 DCW (Rec: 12/03/23 09:43 DCW [id number]) Current Condition History of Current Condition Onset Date Multi-year history Current Complaints Weakness, deconditioning, imbalance History of Current Condition Pt is an 88 year old female presenting with a multi-year history of worsening balance, weakness, and instability, which has resulted in a few falls. Pt reports she suffered a TIA a few years ago, minimal lingering physical effects, other than just deconditioning, as she has decreased her activity level, but admits that it has greatly increased her emotional liability, pt even began crying walking back from the waiting room, noted she didn't know why and wasn't feeling upset. Admits she doesn't exercise enough. Comes in to her initial evaluation with a SPC, but admits she uses it infrequently. Pt's son attends eval with her, pt [place]. Treatment Goals Patient/Caregiver Goals Increase strength and activity [place], decrease falls risk Personal Factors Other Personal Factors That May Effect Hz of TIA, Hx of R TKA, R JAMAR, Therapy/Recovery memory loss, [place] in [place], multiple falls PT-OP-C Subjective Start: 11/30/23 16:45 Freq: Status: Active Protocol: Document 01/15/24 16:00 DCW (Rec: 01/15/24 16:38 DCW [id number]) OP-PT Subjective Patient Comments Patient Comments I'm awake, at least somewhat. That's all I can say. Admits she still isn't sleeping ll that well. Tried to get out and walk a bit. PT-OP-D Balance Start: 11/30/23 16:45 Freq: Status: Active Protocol: Document 01/15/24 16:00 DCW (Rec: 01/15/24 16:40 DCW [id number]) Balance Tests Hicks Balance Test Hicks Balance Test Score 49/56 Hicks Balance Assessment Evaluation Sitting to Standing Ability Independent w/out Hands Unsupported Stance Safely- 2 minutes Sitting Unsupported, Feet on Floor Safely- 2 minutes Standing to Sitting Ability Safely, Minimal Hand Use Transfer Ability Safely, Minimal Hand Use Unsupported Stance- Eyes Closed Safely, 10 seconds Unsupported Stance- Eyes Open Independent, 1 minute Reaching Forward Standing Safely, 5 inches Pick- Up Object From Floor Independent/Safe Look Behind Shoulder - Standing Shifts Weight Well Turning 360 Degrees Turns slowly, but safely Unsupported Stance, Alternating Feet on (I)- 8 Steps in 20 secs Stair Unsupported Tandem Stance Holds Tandem- 30 seconds Unilateral Leg Stance Lifts Leg/Unable to Hold Total Score Hicks Total Score (out of 56 points) 49 Hicks Impairment Rating 20 to 39% Impaired (Score 34- 44) PT-OP-E Functional Tests Start: 11/30/23 16:45 Freq: Status: Active Protocol: Document 01/15/24 16:00 DCW (Rec: 01/15/24 16:40 DCW [id number]) Functional Tests Dynamic Gait Index (DGI) Score 23/24 DGI Impairment Rating 1 to <20% Impaired (Score 20- 23) PT-OP-M Strength Start: 11/30/23 16:45 Freq: Status: Active Protocol: Document 11/30/23 16:10 DCW (Rec: 11/30/23 16:50 DCW [id number]) Hip Strength Hip Manual Muscle Testing Right Flexion (L2) 4- Good- Abduction 4- Good- Adduction 4 Good External Rotation 4 Good Internal Rotation 4 Good Left Flexion (L2) 3+ Fair+ Abduction 4- Good- Adduction 4 Good External Rotation 4 Good Internal Rotation 4 Good Knee Strength Knee Manual Muscle Testing Right Flexion (S2) 3+ Fair+ Extension (L3) 4- Good- Left Flexion (S2) 4- Good- Extension (L3) 4- Good- PT-OP-Q Treatments Start: 11/30/23 16:45 Freq: Status: Active Protocol: Document 01/15/24 16:00 DCW (Rec: 01/15/24 16:38 DCW [id number]) Therapeutic Exercises Standing Exercises Chest Press Standing Exercise Name Chest Press /c PVC Shoulder Abduction Standing Exercise Name Shoulder Abduction Side bilateral Resistance 2# Shoulder Flexion Standing Exercise Name Shoulder Flexion Side bilateral Resistance 2# Rows Standing Exercise Name Rows Side bilateral Resistance Green Shoulder Extension Standing Exercise Name Shoulder Extension Side bilateral Resistance Green Hip Extension Standing Exercise Name Hip Extension Side bilateral Resistance Green loop at ankles Reps/Minutes 2x10 ea Comments cues for upright posture, smaller range, straight leg PT-OP-T Assessment and Plan Start: 11/30/23 16:45 Freq: Status: Active Protocol: Document 01/15/24 16:00 DCW (Rec: 01/15/24 16:38 [facility] [id number]) Physical Therapy Assessment Impairments Impairments Activity Tolerance,Balance, Functional Activities, Functional Mobility,Soft Tissue Mobility,Strength Goals Three Impairment MMT of B hip flex/abd, and B knee flex/ext tested at 4-/5 or weaker [place] [facility] Goal (LTG) Pt to demonstrate MMT of 4/5 or greater in all tested planes of bilateral hips and knees in order to improve dynamic stability. LTG Duration 02/28/24 Two Impairment Pt scores as in increased falls risk on Hicks Balance scale (42/56) [facility] Goal (LTG) Pt to increase score on Hicks Balance scale by at least 4 points to 46/56 in order to demonstrate decrease in falls risk LTG Duration Met One Impairment Pt does not have an appropriate home exercise program Short Term Goal (STG) Pt to be independent and compliant with an appropriate HEP STG Duration 12/31/23 [place] Goal (LTG) HEP HO issued 12/06/23: Resisted Side stepping, seated hip flexion with band, seated knee flex/ext with band Assessment Summary Assessment Despite poor compliance with HEP, pt is showing good signs of improvement. Increased score on Hicks (49/56) and DGI () suggest pt is no longer presenting at an increased risk of falls. Pt will likely be discharged following last scheduled visit . Pt may, however, benefit from new referral for decrease in shoulder function. Physical Therapy Plan Frequency and Duration Frequency of Treatment 2x/Week Plan of Care Start Date 11/30/23 Plan of Care End Date 02/28/24 Therapeutic Interventions Therapeutic Interventions Balance Training,Gait Training ,Home Exercise Program,Joint Mobilizations,Manual Therapy, Neuromuscular Re-education, Patient/Caregiver Education, Self-Care/Home Management,Soft Tissue Mobilization, Therapeutic Activities, Therapeutic Exercises Next Visit Focus/Plan Next Note Type Treatment Note Next Visit Plan Static/dynamic balance challenges, ambulation on uneven surfaces, increased activity tolerance Assess HEP carryover
--- NOTE | 2024-01-18 16:48 | PT.OTN ---
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, unspecified (01/18/24) Physical Therapy Treatment Note PT-OP-A Visit Information Start: 11/30/23 16:45 Freq: Status: Active Protocol: Document 01/18/24 16:00 DCW (Rec: 01/18/24 16:48 DCW [id number]) Out-Patient Physical Therapy Visit Information Visit Information Visit Type Discharge Summary Visit Start Time 16:00 Visit Stop Time 16:45 Visit Number 12 Number of TRAFFIC SIGNAL SUPERVISOR MAINTENANCE Visits 0 Evaluation Information Evaluation Date 11/30/23 PT-OP-B Current Condition Start: 11/30/23 16:45 Freq: Status: Active Protocol: Document 11/30/23 16:10 DCW (Rec: 12/03/23 09:43 DCW [id number]) Current Condition History of Current Condition Onset Date Multi-year history Current Complaints Weakness, deconditioning, imbalance History of Current Condition Pt is an 88 year old female presenting with a multi-year history of worsening balance, weakness, and instability, which has resulted in a few falls. Pt reports she suffered a TIA a few years ago, minimal lingering physical effects, other than just deconditioning, as she has decreased her activity level, but admits that it has greatly increased her emotional liability, pt even began crying walking back from the waiting room, noted she didn't know why and wasn't feeling upset. Admits she doesn't exercise enough. Comes in to her initial evaluation with a SPC, but admits she uses it infrequently. Pt's son attends eval with her, pt [place] in [place] Treatment Goals Patient/Caregiver Goals Increase strength and activity [place], decrease falls risk Personal Factors Other Personal Factors That May Effect Hz of TIA, Hx of R TKA, R JAMAR, Therapy/Recovery memory loss, [place], multiple falls PT-OP-C Subjective Start: 11/30/23 16:45 Freq: Status: Active Protocol: Document 01/18/24 16:00 DCW (Rec: 01/18/24 16:48 DCW [id number]) OP-PT Subjective Patient Comments Patient Comments I'm here, that's about all I can say. Pt admits her shoulders are bothering her, but doesn't really want any more therapy for them, beginning to be worried about her copays. PT-OP-D Balance Start: 11/30/23 16:45 Freq: Status: Active Protocol: Document 01/15/24 16:00 DCW (Rec: 01/15/24 16:40 DCW [id number]) Balance Tests Hicks Balance Test Hicks Balance Test Score 49/56 Hicks Balance Assessment Evaluation Sitting to Standing Ability Independent w/out Hands Unsupported Stance Safely- 2 minutes Sitting Unsupported, Feet on Floor Safely- 2 minutes Standing to Sitting Ability Safely, Minimal Hand Use Transfer Ability Safely, Minimal Hand Use Unsupported Stance- Eyes Closed Safely, 10 seconds Unsupported Stance- Eyes Open Independent, 1 minute Reaching Forward Standing Safely, 5 inches Pick- Up Object From Floor Independent/Safe Look Behind Shoulder - Standing Shifts Weight Well Turning 360 Degrees Turns slowly, but safely Unsupported Stance, Alternating Feet on (I)- 8 Steps in 20 secs Stair Unsupported Tandem Stance Holds Tandem- 30 seconds Unilateral Leg Stance Lifts Leg/Unable to Hold Total Score Hicks Total Score (out of 56 points) 49 Hicks Impairment Rating 20 to 39% Impaired (Score 34- 44) PT-OP-E Functional Tests Start: 11/30/23 16:45 Freq: Status: Active Protocol: Document 01/15/24 16:00 DCW (Rec: 01/15/24 16:40 DCW [id number]) Functional Tests Dynamic Gait Index (DGI) Score 23/24 DGI Impairment Rating 1 to <20% Impaired (Score 20- 23) PT-OP-M Strength Start: 11/30/23 16:45 Freq: Status: Active Protocol: Document 11/30/23 16:10 DCW (Rec: 11/30/23 16:50 DCW [id number]) Hip Strength Hip Manual Muscle Testing Right Flexion (L2) 4- Good- Abduction 4- Good- Adduction 4 Good External Rotation 4 Good Internal Rotation 4 Good Left Flexion (L2) 3+ Fair+ Abduction 4- Good- Adduction 4 Good External Rotation 4 Good Internal Rotation 4 Good Knee Strength Knee Manual Muscle Testing Right Flexion (S2) 3+ Fair+ Extension (L3) 4- Good- Left Flexion (S2) 4- Good- Extension (L3) 4- Good- PT-OP-Q Treatments Start: 11/30/23 16:45 Freq: Status: Active Protocol: Document 01/18/24 16:00 DCW (Rec: 01/18/24 16:48 DCW [id number]) Cardio Equipment Recumbent Elliptical (Biodex) Duration (Minutes) 6 Resistance 5 Seat Position 9 Therapeutic Exercises Supine Exercises Serratus Punch Supine Exercise Name Serratus punch Shoulder Flexion Supine Exercise Name Shoulder flexion /c cane Side bilateral Standing Exercises Wall SLide Standing Exercise Name Wall Slide Side bilateral Pec Stretch Standing Exercise Name Pec Stretch Comments Corner ER/IR Standing Exercise Name Isometric ER/IR Reps/Minutes 5 hold Rows Standing Exercise Name Rows Side bilateral Resistance Green Shoulder Extension Standing Exercise Name Shoulder Extension Side bilateral Resistance Green PT-OP-T Assessment and Plan Start: 11/30/23 16:45 Freq: Status: Active Protocol: Document 01/18/24 16:00 DCW (Rec: 01/18/24 16:48 DCW [id number]) Physical Therapy Assessment Impairments Impairments Activity Tolerance,Balance, Functional Activities, Functional Mobility,Soft Tissue Mobility,Strength Goals Three Impairment MMT of B hip flex/abd, and B knee flex/ext tested at 4-/5 or weaker Senior Living Goal (LTG) Pt to demonstrate MMT of 4/5 or greater in all tested planes of bilateral hips and knees in order to improve dynamic stability. LTG Duration 02/28/24 Two Impairment Pt scores as in increased falls risk on Hicks Balance scale (42/56) Cryptologic Technician Operator/Analyst Goal (LTG) Pt to increase score on Hicks Balance scale by at least 4 points to 46/56 in order to demonstrate decrease in falls risk LTG Duration Met One Impairment Pt does not have an appropriate home exercise program Short Term Goal (STG) Pt to be independent and compliant with an appropriate HEP STG Duration 12/31/23 Senior Living Goal (LTG) HEP HO issued 12/06/23: Resisted Side stepping, seated hip flexion with band, seated knee flex/ext with band Assessment Summary Assessment Reviewed new HEP to help with shoulder strength in order to assist with fall recovery. Pt agreeable to discharge at this time, plans to work on independent HEP for her shoulders, return to PCP if she continues to have pain. Physical Therapy Plan Frequency and Duration Frequency of Treatment 2x/Week Plan of Care Start Date 11/30/23 Plan of Care End Date 02/28/24 Therapeutic Interventions Therapeutic Interventions Balance Training,Gait Training ,Home Exercise Program,Joint Mobilizations,Manual Therapy, Neuromuscular Re-education, Patient/Caregiver Education, Self-Care/Home Management,Soft Tissue Mobilization, Therapeutic Activities, Therapeutic Exercises Discharge Physical Therapy Discharge Reasons Plateau in Progress Next Visit Focus/Plan Next Note Type Discharge Summary Next Visit Plan Static/dynamic balance challenges, ambulation on uneven surfaces, increased activity tolerance Assess HEP carryover
== END 2024-01-22 14:24 | disposition home or self-care (01) ==
LOC: PHYS 16:00
PROVIDERS: PCP Family Medicine; Referring Provider Family Medicine; Visit Provider Family Medicine
DX: R53.81 Other malaise (principal); Y93.B9 Activity, other involving muscle strengthening exercises; Z74.9 Problem related to care provider dependency, unspecified; R29.6 Repeated falls; R26.81 Unsteadiness on feet
CPT/HCPCS: 97110; 97112; 97162; 97535

== ENCOUNTER → 2024-03-06 10:35 | Outpatient (CLI) | payer OTHER, SELFPAY ==
[2023-04-04 20:43] VITALS: BMI 25.8
--- NOTE | 2024-03-06 10:36 | DI.RAD.S_ITS ---
PROCEDURE: XR ELBOW RT MIN 3V INDICATIONS: elbow pain and swelling TECHNIQUE: 3 views of the elbow were acquired. COMPARISON: None. FINDINGS: Bones: No fractures or dislocations. No suspicious bony lesions. Soft tissues: No elbow joint effusion. No suspicious soft tissue calcifications. IMPRESSION: No acute osseous abnormality. If pain persists with conservative management, consider repeat x-ray in 10-14 days or cross-sectional imaging. Dictated by: Yazan Castro M.D. on 03/06/2024 at 18:01 Approved by: Yazan Castro M.D. on 03/06/2024 at 18:03
== END ==
PROVIDERS: PCP Family Medicine; Referring Provider Physician Assistant; Visit Provider Physician Assistant
DX: M70.21 Olecranon bursitis, right elbow (principal)
CPT/HCPCS: 73080